=== PATIENT | female | born 1970 | race Caucasian/White ===

== ENCOUNTER 2019-06-17 07:12 | Outpatient (RCR) | payer BC, SELFPAY ==
--- NOTE | 2019-06-17 08:20 | PTOPEVAL ---
PHYSICAL THERAPY EVALUATION AND PLAN OF CARE 06-17-2019 The PT evaluation was completed for the diagnosis of low back pain. Her plan of treatment is for 1-2x/week for 4 weeks. Thank you for referring Kathryn to [facility]. Please review, sign, date and return this plan of care ALL. I agree with and certify that the following plan of care is medically necessary. Referring Physician Date Attending Provider: Batsheva Smith APN *PT Outpatient Evaluation Start: 06/17/19 07:24 Document 06/17/19 07:20 NORA (Rec: 06/17/19 08:19 NORA [id number]) Outpatient Past Medical History Neurological History Hx Neurological Disorders No Significant History Cardiovascular History Hx Cardiac Disorders No Significant History Respiratory History Hx Sleep Apnea Yes: CPAP Gastrointestinal History Hx Diverticulitis Yes: intermittent Genitourinary History Hx Bladder Surgery Yes: sling Musculoskeletal History Hx Back Pain Yes: this admission; with Endocrine History Hx Endocrine Disorders No Significant History Evaluation Information Problem Diagnosis low back pain Onset May 18, 2019 Subjective Information to ER, due to back pain Query Text:As Reported By Patient/ increasing after having sex; Family unable to stand upright, problems walking; had steroids - made her ill, helped little; continue to have pain, but less; pain increased after lean forward into freezer; Diagnostic Tests X-Rays For This Problem Yes: per pt was negative Previous Treatments Previous Treatments For This Problem no PT for back Prior Level of Function Activity Level (Last 3 Months) Occupation office- computer, phone, 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 Home Meds Must Be Re-entered With Each Visit. Comments Additional Prior Level of Function family assist with vaccuuming
--- NOTE | 2019-06-24 07:42 | PCPTNOTE ---
Patient did not show up for scheduled appointment this date.
--- NOTE | 2019-07-07 13:46 | PCPTNOTE ---
PHYSICAL THERAPY DISCHARGE 07-07-2019 Attending Provider: Batsheva Smith NP Patient:Kathryn Sosa Date of :1970 Mrs. Sosa has not returned for any further treatments since the PT evaluation on 06/17/2019, for the diagnosis of low back pain. Therefore she will be discharged from therapy at this time. The goals were not assessed. [facility]. Please review, sign, date and return this discharge summary ALL. I have been updated about the patient's current status and I agree with discharge from the above service at this time. Referring Physician Date
== END 2019-07-07 14:48 | disposition home or self-care (01) ==
LOC: ANHPT 07:12
PROVIDERS: PCP Nurse Practitioner; Visit Provider Nurse Practitioner
DX: M54.5 Low back pain (principal)
CPT/HCPCS: 97110; 97161

== ENCOUNTER 2020-03-02 09:35 | Outpatient (CLI) | payer BC, SELFPAY ==
--- NOTE | ~2020-03-02 | CT_ITS ---
EXAMINATION: CT pelvis wo con DATE: 03/02/2020 09:49 INDICATION: Left groin/pelvic lump or bulge which is tender to touch. TECHNIQUE: Computed tomography (CT) of the pelvis was performed without intravenous contrast. Automat ed exposure control and iterative reconstruction technique were employed. The dose-length product was 295.54 mGy-cm. COMPARISON: None FINDINGS: Postoperative changes with suture line along a loop of small bowel in the anterior pelvis. No abnorma l bowel wall thickening or obstruction. There is sigmoid diverticulosis without adjacent inflammatory change to suggest diverticulitis. Normal appendix. Bladder is normal. The uterus is not identified a nd has likely been surgically resected. The left ovary is normal. The right ovaries unable to be defi nitively identified amongst the bowels. No free intraperitoneal gas or fluid. No pathologically enlar ged pelvic or inguinal lymphadenopathy. Tiny fat-containing left inguinal hernia measuring approximat neel 1 cm in maximal diameter at the distal aspect of the inguinal canal. Mild lumbar levocurvature. M ild degenerative skeletal changes at the bilateral hips, sacroiliac joints and lower lumbar spine. Sm all bone islands at the left ischial and bilateral proximal femurs. IMPRESSION: 1. Tiny fat-containing left inguinal hernia. No pathologically enlarged abdominal lymphadenopathy or other abnormal masses or fluid collections. 2. Sigmoid diverticulosis. Reviewed, dictated and finalized at location B. IMPRESSION: 1. Tiny fat-containing left inguinal hernia. No pathologically enlarged abdomin al lymphadenopathy or other abnormal masses or fluid collections. 2. Sigmoid diverticulosis.
== END 2020-03-02 09:36 ==
PROVIDERS: PCP Internal Medicine; Visit Provider Student in an Organized Health Care Education/Training Program
DX: R19.09 Other intra-abdominal and pelvic swelling, mass and lump (principal); K40.90 Unilateral inguinal hernia, without obstruction or gangrene, not specified as recurrent; K57.90 Diverticulosis of intestine, part unspecified, without perforation or abscess without bleeding
CPT/HCPCS: 72192

== ENCOUNTER 2020-03-11 03:42 | Outpatient (CLI) | payer BC, SELFPAY ==
[2020-03-11 17:45] LABS: SARS-CoV-2 RNA PCR Negative
== END 2020-03-11 03:43 | disposition home or self-care (01) ==
LOC: ANHCOVIDDT 03:43
PROVIDERS: PCP Internal Medicine; Visit Provider Surgery
DX: Z01.812 Encounter for preprocedural laboratory examination (principal); Z20.828 Contact with and (suspected) exposure to other viral communicable diseases
CPT/HCPCS: 87635; C9803; U0003

== ENCOUNTER 2020-03-14 01:42 | Day surgery (SDC) | payer BC, SELFPAY ==
[2020-03-10 14:41] VITALS: BMI 23.8
[2020-03-14] VITALS (9 sets, daily range): BP systolic 112–135; BP diastolic 54–79; PULSE 52–73; RESP 12–20; TEMP 36.4–36.8; O2SAT 97–100
[2020-03-14] MEDS: ACETAMINOPHEN 500 MG TABLET 1000 MG PO (06:51)
[2020-03-14] MEDS: LACTATED RINGERS 1,000 ML 30 ML IV CONT ×2 (07:05→10:33)
[2020-03-14] MEDS: KETOROLAC 15 MG/ML VIAL (*BKC) IV PUSH (07:14)
--- NOTE | 2020-03-14 08:00 | WPDANESEPPF ---
Anes - Initial Pre Proc Eval Procedure: Operation Date: 03/14/20 08:30 Proposed Procedures p Left Laparoscopic Inguinal Hernia Repair With Mesh - Wilber Vela MD Date/Time: 03/14/20 08:00 Surgeon: Wilber Vela MD Pre Op Diagnosis: Reducible Left Inguinal Hernia Patient Data Age: 50 Gender: F Height: 1.68 m Weight: 66.1 kg Last Vital Signs Temp 36.4 C L 03/14/20 06:55 Pulse 73 03/14/20 06:55 Resp 20 03/14/20 06:55 BP 115/66 03/14/20 06:55 Pulse Ox 100 03/14/20 06:55 Allergies Allergy/AdvReac Type Severity Reaction Status Date / Time Iodinated Contrast Media Allergy Unknown SWELLING, Verified 03/14/20 07:16 HIVES Home Medications Medication Instructions Recorded Confirmed Type sertraline 100 mg tablet 100 mg PO DAILY #90 tablet 12/29/19 03/14/20 Rx clonazepam 0.5 mg tablet 0.5 mg PO DAILY 03/08/20 03/14/20 History multivitamin 1 tablet PO DAILY 03/10/20 03/14/20 History Patient hx anesthesia problems: none Family hx anesthesia problems: none PMFSH Past Medical History Medical History Depression Diverticulitis HLD (hyperlipidemia) Insomnia Meckels diverticulum Ovarian cyst Surgical History Surgical History History of hysterectomy History of intestinal surgery resection of Meckels diverticulum S/P laparoscopic procedure pelvic laparoscopy Family History Family History Father Family history of malignant neoplasm of esophagus Hypertension Family history of coronary artery disease Sibling Patient's brother is in good health Mother HLD (hyperlipidemia) History of kidney cancer Son Asthma Social History Social History Years smoked: 20 Smoking status: Current every day smoker Tobacco type: cigarettes Smoking end date: 05/25/19 Alcohol intake: current Drinks per week: 3 Substance use: unknown Spiritual care concerns: No Anes - Eval Final PreProcedure Day of Procedure 03/14/20 08:00 Patient weight: normal Heart: regular rate and rhythm Lungs: clear to auscultation and normal air movement Airway: Mallampati scale class II Neurological: alert and oriented Last oral intake: >/= 8 hours ASA classification: III Emergent: no Anesthetic plan: proceed Anesthesia type and monitoring: general LMA and ETT Informed Consent: The patient's anesthetic plan and its attendant risks and benefits were discussed with the patient/family/POA. Questions were solicited and answers provided to the satisfaction of the patient/family/POA.
--- NOTE | 2020-03-14 08:16 | WPDHPUPDATE1 ---
History and Physical Update Update Date/Time: 03/14/20 08:16 History and Physical has been reviewed, including an updated exam of the patient. There are NO changes in the patient's condition. Risks, benefits, and alternatives have been discussed and questions answered. Patient agrees to proceed with procedure.
[2020-03-14] MEDS: ceFAZolin 2 GM/D5W 50 ML 2 GM/50 ML BAG IVPB (08:51)
[2020-03-14] MEDS: BUPIVACAINE/EPINEPHRINE 0.5% 10 ML VIAL 30 ML INFILTRATE (09:35)
--- NOTE | 2020-03-14 10:42 | PM.PROC ---
Procedure Note - Detailed Date of procedure: 03/15/20 Pre-op diagnosis: Reducible Left Inguinal Hernia Post-op diagnosis: same Procedure performed: Laparoscopic left inguinal hernia repair with mesh Description of procedure: After appropriate marking of the operative site prior to surgery, the patient was taken to the operating room. After induction of adequate general endotracheal anesthesia by [facility] staff,a lebron catheter was placed and the patient was carefully prepped and draped in a sterile fashion. A timeout was performed confirming the procedure and site of surgery on the left. Following this, local anesthetic was infiltrated into the umbilical area and a vertical incision was made just below the umbilicus. I carefully dissected down to the the anterior rectus sheath on the left and then made a 1 cm vertical slit in the fascia just off the midline. The rectus muscle was retracted to left and then just in front of the posterior rectus sheath, a circular dissecting balloon was passed onto the pubic bone. After placing slight pressure on the right groin area, this was insufflated with 30 pumps, while watching with the 0 degree 10 mm laparoscope. It appeared that I was in the proper plane. Following this, the dissecting balloon was deflated and removed and replaced by an Round- shaped conforming balloon. Following this, the 0 degree laparoscope was used to carefully place two 5mm trocars, just to the right of midline. One was placed suprapubic and other one detention between the umbilicus and the pubic bone. Tedious dissection then occurred in the preperitoneal space exposing the Anton's ligament, the round ligament structures, the muscular tissue anteriorly, and the retroperitoneum. The indirect sac was then able to be dissected back and we could visualize the posterior peritoneum. I then dissected up to the level of the umbilicus and it was ready for mesh placement. In the preperitoneal space distal to these attachments of the indirect sac I did transect the round ligament and then dissected back to be able to let the dissected sac lie on the mesh that we inserted later. After carefully confirming all sites and that the mesh would cover the direct space, I carefully rolled the Bard left large 3D mesh and slid this through the 12 mm trocar at the umbilical level down into the preperitoneal space. This unfurled nicely and sat nicely against the left groin structures. It nicely covered all spaces and it went back nicely into the preperitoneal space along the anterior-superior iliac spine. I took a picture of it carefully, which showed that the mesh will cover the preperitoneal groin well, and had come down to the posterior border of the peritoneum. Once this was accomplished, I took the patient out of Trendelenburg position, rotated the patient back even, and then observed using a dissector through the higher 5 mm trocar to keep the mesh pushed down against the anterior and posterior abdominal wall retroperitoneally. The peritoneum was then allowed to fall on to the mesh and it held the mesh nicely in place. I carefully removed each of the 5 mm trocars under direct vision and compressed the CO2 gas out of the preperitoneal space, deflating the conforming balloon and removing it. I was happy with the way the peritoneum laid back on the mesh. I felt this will give the patient a good preperitoneal repair. Following this, I carefully removed the conforming balloon. An O Vicryl figure of eight suture was used to close the anterior rectus sheath on the left side of the umbilical incision and then local anesthetic was infiltrated into each of the incisions. Each site was closed with 4-0 undyed Monocryl and a running subcuticular closure of 4-0 undyed Moncryl was used on the skin of umbilicus. Surgical glue was used for dressing. Following this, the patient was taken to the recovery room in good condition. Estimated blood loss, again, was about less than 30 mls. Ermelinda
[2020-03-14] MEDS: oxyCODONE HCL (*CRX) 5 MG TAB IR PO (11:44)
--- NOTE | 2020-03-14 12:57 | SUR.PHASEII ---
1230 discharge criteria met awaiting transportation home.
== END 2020-03-14 13:20 | disposition home or self-care (01) ==
PROVIDERS: PCP Internal Medicine; Visit Provider Surgery
PROC: (CPT 49650; principal; 2020-03-14 08:30)
DX: K40.90 Unilateral inguinal hernia, without obstruction or gangrene, not specified as recurrent (principal); E78.5 Hyperlipidemia, unspecified; F32.9 Major depressive disorder, single episode, unspecified; F17.210 Nicotine dependence, cigarettes, uncomplicated
CPT/HCPCS: 49650; 36415; 86850; 86900; 86901; A9270; C1781; J0330; J0690; J1100; J1885; J2250; J2405; J2704; J2710; J3010; J7120

== ENCOUNTER 2020-03-15 19:25 | Emergency (ER) | payer BC, SELFPAY ==
[2020-03-15 19:30] VITALS: BP 140/87; PULSE 68; RESP 15; O2SAT 98
[2020-03-15 19:33] VITALS: PULSE 71; RESP 12; O2SAT 99
--- NOTE | 2020-03-15 19:33 | ED.GENADULT ---
HPI - General Adult General Chief complaint: Syncope Stated complaint: near syncope Source: patient History of Present Illness HPI narrative: 50-year-old female presents to emergency department after sustaining a presyncopal episode. Patient states she was having a bowel movement, and felt like she was about to pass out. Never had this in the past before. Patient did have a hernia surgery yesterday. No complications from that surgery at this time. Patient states she feels back to normal now. Patient had a normal glucose per EMS. Related Data Home Medications Medication Instructions Recorded Confirmed clonazepam 0.5 mg tablet 0.5 mg PO DAILY 03/08/20 03/14/20 multivitamin 1 tablet PO DAILY 03/10/20 03/14/20 Allergies Allergy/AdvReac Type Severity Reaction Status Date / Time Iodinated Contrast Media Allergy Unknown SWELLING, Verified 03/14/20 07:16 HIVES Review of Systems Review of Systems: Narrative: CONSTITUTIONAL: Denies fever, chills, or sweats. EYES: Denies visual changes, redness, or discharge. ENT: Denies rhinorrhea, congestion, sore throat, or otalgia. CARDIOVASCULAR: Denies chest pain, palpitations, or edema. RESPIRATORY: Denies cough or dyspnea. GASTROINTESTINAL: Denies abdominal pain, nausea, vomiting, or diarrhea. GENITOURINARY: Denies dysuria or hematuria. SKIN: Denies rash or itching. MUSCULOSKELETAL: Denies back pain, joint pain, or myalgia. NEUROLOGIC: Denies headache, numbness, dizziness, or weakness. PSYCHIATRIC: Denies anxiety or depression. All systems reviewed & are unremarkable except as noted in HPI and below (ROS) [facility] Past Medical History Medical History Depression Diverticulitis HLD (hyperlipidemia) Insomnia Meckels diverticulum Ovarian cyst Surgical History Surgical History History of hysterectomy History of intestinal surgery resection of Meckels diverticulum S/P laparoscopic procedure pelvic laparoscopy Family History Family History Father Family history of malignant neoplasm of esophagus Hypertension Family history of coronary artery disease Sibling Patient's brother is in good health Mother HLD (hyperlipidemia) History of kidney cancer Son Asthma Social History Social History Years smoked: 20 Smoking status: Current every day smoker Tobacco type: cigarettes Smoking end date: 05/25/19 Alcohol intake: current Drinks per week: 3 Substance use: unknown Gender identity (if verbalized by the patient): Female Spiritual care concerns: No Exam Narrative: Exam Narrative: GENERAL: Well-appearing, well-nourished, and in no acute distress. HEAD: Normocephalic, atraumatic. EYES: PERRLA and EOMI. ENT: Nares clear, no rhinorrhea or epistaxis. Mucous membranes moist. NECK: Supple. CHEST: Clear to auscultation. No respiratory distress. HEART: Regular rate and rhythm. No murmur heard. Normal peripheral pulses. ABDOMEN: Soft, nontender, nondistended, normal active bowel sounds. EXTREMITIES: Normal range of motion. No edema. SKIN: Warm, dry, no rash. NEURO: No focal deficits. Alert and oriented x3. PSYCH: Normal mood and affect. Course Reevaluation(s) Reevaluation #1: 2230 -reevaluated patient, no new complaints. Patient likely had a vasovagal episode. Counseled patient to follow-up with her medical provider within one week, or if she has another episode where she feels like she is going to pass out. Vital Signs Vital signs: Vital Signs Pulse Rate 68 03/15/20 19:30 Respiratory Rate 15 03/15/20 19:30 Blood Pressure 140/87 03/15/20 19:30 Pulse Oximetry 98 03/15/20 19:30 Pulse Rate 70 03/15/20 19:46 Respiratory Rate 25 H 03/15/20 19:46 Blood Pressure 135/78 03/15/20 19:46 Pulse Oximetry 98
[2020-03-15 19:34] VITALS: BP 140/87; PULSE 67; RESP 21; O2SAT 99
[2020-03-15 19:46] VITALS: BP 135/78; PULSE 70; RESP 25; O2SAT 98
[2020-03-15] MEDS: SODIUM CHLORIDE 0.9% IV 1,000 ML 999 ML IV CONT (20:00)
[2020-03-15 20:14] LABS: Basophils Percent Auto 0.3 % (0.2-1.2); Eosinophils Absolute Auto 0.1 K/mm3 (0-0.3); Eosinophils Percent Auto 1.1 % (0-4.4); Hematocrit 36.2 % (37.0-47.0); Immature Granulocyte Absolute 0.03 K/mm3 (0.00-0.031); Immature Granulocyte Percent A 0.3 % (0-0.5); Lymphocytes Percent Auto 27.2 % (18.3-44.2); Mean Corpuscular HGB Conc 33.1 g/dl (32-36); Mean Corpuscular Hemoglobin 31.4 pg (26-34); Mean Corpuscular Volume 94.8 fl (80-100); Mean Platelet Volume 9.9 fl (7.4-10.4); Monocytes Absolute Auto 0.6 K/mm3 (0.1-0.6); Neutrophils Absolute Auto 5.7 K/mm3 (1.3-6.7); Neutrophils Percent Auto 64.1 % (45.5-73.1); Platelet Count Result 260 k/mm3 (150-375); Red Blood Count 3.82 M/mm3 (4.2-5.4); Red Cell Distribution Width 13.2 % (11.5-14.5); White Blood Count 8.8 K/mm3 (4.5-10.0)
[2020-03-15 20:25] LABS: Alanine Aminotransferase 17 U/L (4-35); Albumin Level 4.3 g/dL (3.5-5.1); Alkaline Phosphatase 50 U/L (38-126); Anion Gap 5 mmol/L (8-16); Aspartate Amino Transferase 25 U/L (14-36); Bilirubin,Total 0.4 mg/dL (0.2-1.3); Blood Urea Nitrogen 11 mg/dL (7-17); Calcium 8.7 mg/dL (8.4-10.2); Carbon Dioxide 31 mmol/L (22-30); Chloride 100 mmol/L (98-107); Estimated CRCL calculation 91 ml/min; Estimated Glomerular Filt Rate > 60; Glucose 105 mg/dL (65-105); Potassium 3.9 mmol/L (3.4-5.0); Sodium 136 mmol/L (137-145)
== END 2020-03-15 22:51 | disposition home or self-care (01) ==
PROVIDERS: Emergency Provider Emergency Medicine; PCP Internal Medicine
DX: R55 Syncope and collapse (principal); F32.9 Major depressive disorder, single episode, unspecified; E78.5 Hyperlipidemia, unspecified; Z90.49 Acquired absence of other specified parts of digestive tract; F17.210 Nicotine dependence, cigarettes, uncomplicated
CPT/HCPCS: 36415; 80053; 85025; 96360; 99283; J7030

== ENCOUNTER 2020-06-03 11:35 | Outpatient (NON) | payer BC, SELFPAY ==
[2020-06-03 17:24] LABS: Influenza Control Positive
[2020-06-03 22:42] LABS: SARS-CoV-2 RNA PCR Negative
== END 2020-06-03 11:36 ==
LOC: ANHCOVIDDT 11:36
PROVIDERS: PCP Internal Medicine; Visit Provider Clinical Nurse Specialist
DX: Z20.822 Contact with and (suspected) exposure to COVID-19 (principal); R50.9 Fever, unspecified
CPT/HCPCS: 87804; C9803; U0003; U0005

== ENCOUNTER → 2020-08-31 07:07 | Outpatient (CLI) | payer BC, SELFPAY ==
[2020-08-31 21:08] LABS: SARS-CoV-2 RNA PCR Positive
== END ==
PROVIDERS: PCP Internal Medicine; Visit Provider Clinical Nurse Specialist
DX: U07.1 COVID-19 (principal)
CPT/HCPCS: C9803; U0003; U0005

== ENCOUNTER 2021-05-15 08:36 | Emergency (ER) | payer BC, SELFPAY ==
--- NOTE | ~2021-05-15 | XR_ITS ---
EXAMINATION: XR lumbar spine min 4V EXAM DATE: 05/15/2021 09:40 INDICATION: Low back pain. Fall. TECHNIQUE: Lumber spine frontal, lateral, bilateral oblique projections. Coned down frontal and lat eral L5-S1 lumbar projections for interpretation. There is no prior study for comparison. FINDINGS: There is mild lumbar levoscoliosis. There is no spondylolysis. The vertebral bodies are ali gned in the AP dimension. There are no acute fractures identified. Vertebral body and disc heights ar e well-maintained. There is mild lumbar facet arthropathy. IMPRESSION: 1. No acute lumbar findings. 2. Mild levoscoliosis. 3. Mild facet arthropathy. Reviewed, dictated and finalized at location B. RVISOR KNITTING
--- NOTE | ~2021-05-15 | CT_ITS ---
EXAMINATION: CT brain wo con, CT cervical spine wo con EXAM DATE: 05/15/2021 09:45 INDICATION: Head trauma. Nausea and dizziness. TECHNIQUE: Spiral CT of the head was performed without contrast. Axial, coronal and sagittal images were reviewed. Spiral CT of the cervical spine was performed without contrast. Axial images were rev iewed. Coronal and sagittal reformatted images were also reviewed. The dose-length product (DLP) fo r this examination was 605.33 (accession [id number]), 210.85 (accession [id number]) mGy-cm. The exposure was tailored according to patient size, and iterative reconstruction (ASIR) was used as additional dose reduction technique. There is no prior study for comparison. FINDINGS: HEAD CT: There is no acute intraparenchymal hemorrhage. No evidence of intraparenchymal brain mass l esion. No evidence of acute infarction. There is no mass effect or midline shift. There is no obstru ctive hydrocephalus suspected. There are no extra-axial collections. There are no acute calvarial f ractures. The orbits are unremarkable. Soft tissue is unremarkable. The visualized sinuses and mas toid air cells are well aerated. CERVICAL CT: There is no evidence of acute cervical fracture. The odontoid process is intact. Pre- dens space is normal. Prevertebral soft tissue is normal. There are no soft tissue abnormalities id entified. There is no disc space widening or traumatic vertebral body subluxation suspected. Modera te lower cervical disc disease and mild cervical arthropathy. A detailed level by level evaluation o f spondylosis can be added as addendum if requested. IMPRESSION: 1. No acute intracranial findings or cervical fracture. Reviewed, dictated and finalized at location B. ASSET MANAGER IMPRESSION: 1. No acute intracranial findings or cervical fracture.
--- NOTE | ~2021-05-15 | XR_ITS ---
EXAMINATION: XR sacrum coccyx min 2V EXAM DATE: 05/15/2021 09:40 INDICATION: Fell down steps last night, low back pain. TECHNIQUE: Sacral frontal, inlet, lateral projections for interpretation. Comparison is made to prior examination from 05/15/2021. FINDINGS: Sacrum, sacroiliac joints, sacral arcuate lines are intact. There are no acute fractures o r dislocations identified. There is no subcutaneous gas. The soft tissue is unremarkable. Right m idabdominal anastomosis material. Mild lumbar levoscoliosis. IMPRESSION: No acute osseous findings. Reviewed, dictated and finalized at location B. [employer] IMPRESSION: No acute osseous findings.
[2021-05-15 08:39] VITALS: BP 188/114; PULSE 85; RESP 18; TEMP 36.8; O2SAT 100
--- NOTE | 2021-05-15 09:50 | ED.GENADULT ---
HPI - General Adult General Chief complaint: Fall Stated complaint: fall Time Seen by Provider: 05/15/21 09:16 Source: patient Mode of arrival: ambulatory Limitations: no limitations History of Present Illness HPI narrative: Patient is a 51-year-old female with chief complaint of pain to the posterior aspect of her head after falling while trying to step over a baby gate at the top of her stairs last night. Patient reports that she struck the posterior aspect of her head in the right side on a can of paint. She denies loss of consciousness reports after the event she feel dizzy and nauseous. Patient reports that she went to be after that. She reports was negative this morning with continuation of prior feelings of nausea and dizziness. She denies changes in her vision or hearing. She denies speech difficulty. She reports that she feels as if she is spinning when she attempts to ambulate. She had her brother bring her to the emergency department. Patient also reports pain to her low back and coccyx area. Patient reports bruises to the right arm but and lower extremities. However she denies bony tenderness to these areas. Related Data Home Medications Medication Instructions Recorded Confirmed clonazepam 0.5 mg tablet 0.5 mg PO DAILY 03/08/20 04/25/20 multivitamin 1 tablet PO DAILY 03/10/20 04/25/20 Allergies Allergy/AdvReac Type Severity Reaction Status Date / Time Iodinated Contrast Media Allergy Unknown SWELLING, Verified 06/03/20 09:58 HIVES Review of Systems Review of Systems: CONSTITUTIONAL: Denies fever, chills, or sweats. EYES: Denies visual changes, redness, or discharge. ENT: Denies rhinorrhea, congestion, sore throat, or otalgia. CARDIOVASCULAR: Denies chest pain, palpitations, or edema. RESPIRATORY: Denies cough or dyspnea. GASTROINTESTINAL: Reports nausea denies abdominal pain, vomiting, or diarrhea. GENITOURINARY: Denies dysuria or hematuria. SKIN: Reports ecchymosis denies rash or itching. MUSCULOSKELETAL: Denies back pain, joint pain, or myalgia. NEUROLOGIC: Reports dizziness denies headache, numbness or weakness. PSYCHIATRIC: Denies anxiety or depression. [facility] Past Medical History Medical History (Updated 05/15/21 @ 10:13 by Pearl Harkins PA-C) Depression Diverticulitis HLD (hyperlipidemia) Insomnia Meckels diverticulum Ovarian cyst Surgical History Surgical History (Updated 04/25/20 @ 14:33 by Marla Stephenson [facility]) H/O hernia repair 03/14/2020 History of hysterectomy History of intestinal surgery resection of Meckels diverticulum Left inguinal hernia S/P laparoscopic procedure pelvic laparoscopy Family History Family History Father Family history of malignant neoplasm of esophagus Hypertension Family history of coronary artery disease Sibling Patient's brother is in good health Mother HLD (hyperlipidemia) History of kidney cancer Son Asthma Social History Social History (Updated 04/25/20 @ 14:33 by Marla Stephenson [facility]) Smoking packs per day: 0.5 Smoking cigarettes per day: 10.0 Years smoked: 20 Smoking pack-years: 10.00 Smoking status: Current some day smoker Tobacco type: cigarettes Smoking end date: 05/25/19 Alcohol intake: current Drinks per week: 3 Alcohol use details: Pt drinks socially. Substance use: unknown Gender identity (if verbalized by the patient): Female Spiritual care concerns: No Exam Narrative: GENERAL: Well-appearing, well-nourished, and in no acute distress. HEAD: Normocephalic, atraumatic. EYES: PERRLA and EOMI. ENT: Nares clear, no rhinorrhea or epistaxis. Mucous membranes moist. Oropharynx without tonsillar hypertrophy exudate or other lesions. Bilateral TMs pearly flowers nonbulging. No hemotympanum. NECK: Supple. No adenopathy or masses. Range of motion intact. CHEST: Nontender to palpation. clear to auscultation. No respiratory dis
[2021-05-15 09:58] LABS: Add Urine Microscopic? NO; Appearance Urine Clear (Clear); Bilirubin Urine Negative (Negative); Blood Urine Negative (Negative); Color Urine Yellow (Yellow); Glucose Urine UA Negative (Negative); Ketones Urine Negative (Negative); Leukocyte Esterase Ur Negative LEU/UL (Negative); Nitrate Urine Negative (Negative); Protein Urine Negative (Negative); Urobilinogen Urine Negative mg/dL (<2.0)
[2021-05-15 09:59] LABS: Specific Grav Ur 1.004 (1.001-1.035)
[2021-05-15 10:38] VITALS: BP 153/90; PULSE 78; RESP 16; O2SAT 98
[2021-05-15] MEDS: ONDANSETRON HCL ODT 4 MG TABLET PO (10:38)
== END 2021-05-15 11:00 | disposition home or self-care (01) ==
PROVIDERS: Physician Assistant; Emergency Provider Emergency Medicine; PCP Internal Medicine
DX: S06.0X0A Concussion without loss of consciousness, initial encounter (principal); S39.92XA Unspecified injury of lower back, initial encounter; F32.9 Major depressive disorder, single episode, unspecified; E78.5 Hyperlipidemia, unspecified; F17.210 Nicotine dependence, cigarettes, uncomplicated; W18.09XA Striking against other object with subsequent fall, initial encounter
CPT/HCPCS: 70450; 72110; 72125; 72220; 81003; 99284; A9270

== ENCOUNTER 2021-07-30 10:20 | Emergency (ER) | payer BC, SELFPAY ==
--- NOTE | ~2021-07-30 | XR_ITS ---
EXAMINATION: XR chest 2V DATE: 07/30/2021 11:24 INDICATION: Shortness of breath. TECHNIQUE: Frontal and lateral views of the chest were obtained. COMPARISON: None. FINDINGS: There is mild scarring at the lung apices. No pleural effusion or pneumothorax. The heart s ize is normal. Pectus excavatum is noted. IMPRESSION: 1. Mild scarring at the lung apices. Reviewed, dictated and finalized at location A.
[2021-07-30 10:28] VITALS: BP 179/101; PULSE 109; RESP 14; TEMP 36.6; O2SAT 99
[2021-07-30 10:40] VITALS: BP 188/108; PULSE 107; RESP 16; O2SAT 100
--- NOTE | 2021-07-30 10:49 | ECG_ITS ---
Measurements Intervals [place] Rate: 90 P: 84 NC: 179 QRS: 44 QRSD: 85 T: 65 QT: 354 QTc: 433 Interpretive Statements SINUS RHYTHM LEFT ATRIAL ENLARGEMENT [-0.15mV P-WAVE IN V1/V2] NO PREVIOUS ECG AVAILABLE FOR COMPARISON Electronically Signed On 07-30-2021 16:51:27 CDT by Paulette Alford M.D.
[2021-07-30 10:57] LABS: Basophils Percent Auto 0.5 % (0.2-1.2); Eosinophils Absolute Auto 0.1 K/mm3 (0-0.3); Eosinophils Percent Auto 0.7 % (0-4.4); Hematocrit 42.2 % (37.0-47.0); Hemoglobin 14.2 g/dL (12.0-15.0); Immature Granulocyte Absolute 0.02 K/mm3 (0.00-0.031); Immature Granulocyte Percent A 0.3 % (0-0.5); Lymphocytes Absolute Auto 1.99 K/mm3 (0.9-3.2); Lymphocytes Percent Auto 26.9 % (18.3-44.2); Mean Corpuscular HGB Conc 33.6 g/dl (32-36); Mean Corpuscular Hemoglobin 32.5 pg (26-34); Mean Corpuscular Volume 96.6 fl (80-100); Mean Platelet Volume 9.7 fl (7.4-10.4); Monocytes Absolute Auto 0.7 K/mm3 (0.1-0.6); Monocytes Percent Auto 9.9 % (2.6-8.5); Neutrophils Absolute Auto 4.6 K/mm3 (1.3-6.7); Neutrophils Percent Auto 61.7 % (45.5-73.1); Platelet Count Result 294 k/mm3 (150-375); Red Blood Count 4.37 M/mm3 (4.2-5.4); Red Cell Distribution Width 12.9 % (11.5-14.5); White Blood Count 7.4 K/mm3 (4.5-10.0)
--- NOTE | 2021-07-30 10:58 | ED.ARRPALP ---
HPI - Arrhythmia/Palpitations General Chief Complaint: Arrhythmia/Palpitations Stated Complaint: Palpitations Time Seen by Provider: 07/30/21 10:58 Source: patient Mode of arrival: ambulatory Limitations: no limitations History of Present Illness HPI narrative: Patient is a 51-year-old female with a history of Covid infection in May 2020, presenting to the emergency department for evaluation of palpitations, shortness of breath with exertion, pain with deep inspiration. Patient states she has felt unwell since becoming symptomatic with Covid 2 months ago. Patient reports at times she has a racing heartbeat, but denies any significant chest pain. She denies nausea, vomiting, jaw pain, neck pain, shoulder pain. She does have pain if she takes a deep breath in her posterior left lower chest. She reports cough without hemoptysis. She denies fever or chills. Patient states that she did not require hospitalization with Covid. She states she also had Covid in August 2019 but symptoms were much different, symptoms at that infection were malaise, fatigue, fever. She states that this Covid infection her symptoms are mainly cough and congestion. Patient states that she feels as if she has never cleared this infection. She states that she has not had any leg swelling or calf pain, but her primary care provider referred her to the emergency department to be evaluated for possible PE. Related Data Home Medications Medication Instructions Recorded Confirmed clonazepam 0.5 mg tablet 0.5 mg PO DAILY 03/08/20 04/25/20 multivitamin 1 tablet PO DAILY 03/10/20 04/25/20 Allergies Allergy/AdvReac Type Severity Reaction Status Date / Time Iodinated Contrast Media Allergy Unknown SWELLING, Verified 07/30/21 10:49 ADEN Review of Systems Review of Systems: CONSTITUTIONAL: Denies fever, chills, or sweats. EYES: Denies visual changes, redness, or discharge. ENT: Denies rhinorrhea, congestion, sore throat, or otalgia. CARDIOVASCULAR: Denies chest pain, reports palpitation, denies lower extremity edema RESPIRATORY: Reports cough and shortness of breath GASTROINTESTINAL: Denies abdominal pain, nausea, vomiting, or diarrhea. GENITOURINARY: Denies dysuria or hematuria. SKIN: Denies rash or itching. MUSCULOSKELETAL: Denies back pain, joint pain, or myalgia. NEUROLOGIC: Denies headache, numbness, or weakness. [facility] Past Medical History Medical History Depression Diverticulitis HLD (hyperlipidemia) Insomnia Meckels diverticulum Ovarian cyst Surgical History Surgical History H/O hernia repair 03/14/2020 History of hysterectomy History of intestinal surgery resection of Meckels diverticulum Left inguinal hernia S/P laparoscopic procedure pelvic laparoscopy Family History Family History Father Family history of malignant neoplasm of esophagus Hypertension Family history of coronary artery disease Sibling Patient's brother is in good health Mother HLD (hyperlipidemia) History of kidney cancer Son Asthma Social History Social History Smoking packs per day: 0.5 Smoking cigarettes per day: 10.0 Years smoked: 20 Smoking pack-years: 10.00 Smoking status: Current some day smoker Tobacco type: cigarettes Smoking end date: 05/25/19 Alcohol intake: current Drinks per week: 3 Alcohol use details: Pt drinks socially. Substance use: unknown Gender identity (if verbalized by the patient): Female Spiritual care concerns: No Exam Narrative: GENERAL: Awake, alert, conversant HEAD: Normocephalic, atraumatic. EYES: PERRLA and EOMI. ENT: Nares clear, no rhinorrhea or epistaxis. Mucous membranes moist. NECK: Supple. No cervical midline tenderness. CHEST: No respiratory distress, br
[2021-07-30 11:08] LABS: Alanine Aminotransferase 25 U/L (4-35); Albumin Level 5.2 g/dL (3.5-5.1); Alkaline Phosphatase 71 U/L (38-126); Anion Gap 11 mmol/L (8-16); Aspartate Amino Transferase 43 U/L (14-36); Bilirubin,Total 0.8 mg/dL (0.2-1.3); Blood Urea Nitrogen 16 mg/dL (7-17); Calcium 9.9 mg/dL (8.4-10.2); Carbon Dioxide 26 mmol/L (22-30); Chloride 99 mmol/L (98-107); Estimated Glomerular Filt Rate > 60; Glucose 142 mg/dL (65-110); INR 0.9; Lipase 131 U/L (23-300); Potassium 4.3 mmol/L (3.4-5.0); Prothrombin Time 11.8 Seconds (11.1-14.7); Sodium 136 mmol/L (137-145)
[2021-07-30 11:09] LABS: Partial Thromboplastin Time 27.7 SECONDS (22.3-36.8)
[2021-07-30 11:19] LABS: Troponin I < 0.012 ng/mL (0.000-0.034)
[2021-07-30 11:55] LABS: NT Pro B Type Natriuretic Pept 86 pg/mL (5-100)
== END 2021-07-30 13:25 | disposition home or self-care (01) ==
PROVIDERS: Emergency Provider Emergency Medicine; PCP Internal Medicine
DX: R00.2 Palpitations (principal); E78.5 Hyperlipidemia, unspecified; Z86.16 Personal history of COVID-19; F32.A Depression, unspecified; F17.210 Nicotine dependence, cigarettes, uncomplicated; R94.31 Abnormal electrocardiogram [ECG] [EKG]
CPT/HCPCS: 36415; 71046; 80053; 83690; 83880; 84484; 85025; 85380; 85610; 85730; 93005; 99284

== ENCOUNTER 2022-08-15 09:42 | Emergency (ER) | payer BC, SELFPAY ==
[2022-08-15 09:45] VITALS: BP 190/107; PULSE 88; RESP 20; TEMP 36.4; O2SAT 100
--- NOTE | 2022-08-15 10:29 | ED.EXTPRO ---
HPI - Extremity Problem General Chief complaint: Extremity Problem,Nontraumatic Stated complaint: fingers changing colors Time Seen by Provider: 08/15/22 10:15 History of Present Illness HPI Narrative: This is a 52-year-old female with PMH of anxiety and depression who presents to the ED with chief complaint of hand discoloration beginning this morning. Patient recently diagnosed with COVID and is started taking Paxlovid. She states she started noticing this discoloration after she started the Paxlovid. This started when she was lying down on the couch. Upon arrival to the ED she says her symptoms have completely resolved. States she just felt anxious so she wanted to come in. Denies numbness, weakness. Related Data Home Medications Medication Instructions Recorded Confirmed clonazepam 0.5 mg tablet (Klonopin) 0.5 mg PO DAILY 03/08/20 10/19/21 multivitamin 1 tablet PO DAILY 03/10/20 10/19/21 Allergies Allergy/AdvReac Type Severity Reaction Status Date / Time Iodinated Contrast Media Allergy Unknown SWELLING, Verified 10/19/21 07:40 HIVES Review of Systems Review of Systems: CONSTITUTIONAL: Denies fever, chills, or sweats. SKIN: Endorses discoloration (resolved). Denies rash or itching. MUSCULOSKELETAL: Denies back pain, joint pain, or myalgia. NEUROLOGIC: Denies headache, numbness, dizziness, or weakness. PSYCHIATRIC: Denies anxiety or depression. [facility] Past Medical History Medical History (Updated 08/15/22 @ 10:36 by Tom Mak PA-C) Depression Diverticulitis HLD (hyperlipidemia) Insomnia Meckels diverticulum Ovarian cyst Surgical History Surgical History H/O hernia repair 03/14/2020 History of hysterectomy History of intestinal surgery resection of Meckels diverticulum Left inguinal hernia S/P laparoscopic procedure pelvic laparoscopy Family History Family History Father Family history of malignant neoplasm of esophagus Hypertension Family history of coronary artery disease Sibling Patient's brother is in good health Mother HLD (hyperlipidemia) History of kidney cancer Son Asthma Social History Social History Smoking packs per day: 0.5 Smoking cigarettes per day: 10.0 Years smoked: 20 Smoking pack-years: 10.00 Smoking status: Current every day smoker Tobacco type: cigarettes Smoking end date: 05/25/19 Alcohol intake: current Drinks per week: 3 Alcohol use details: Pt drinks socially. Substance use: unknown Gender identity (if verbalized by the patient): Female Spiritual care concerns: No Exam Narrative: GENERAL: Well-appearing, well-nourished, and in no acute distress. NECK: Supple. No adenopathy or masses. CHEST: No respiratory distress. Clear to auscultation. No wheezes rales or rhonchi HEART: Regular rate and rhythm. No murmur heard. Normal peripheral pulses. Good radial pulses. EXTREMITIES: Normal range of motion. No edema. SKIN: Warm, dry, no rash. Normal color. NEURO: Alert and oriented x3. No focal deficits. Good strength and sensation of the hands PSYCH: Normal mood and affect. Course Vital Signs Vital signs: Vital Signs Temperature 97.6 F 08/15/22 09:45 Pulse Rate 88 08/15/22 09:45 Respiratory Rate 20 08/15/22 09:45 Blood Pressure 190/107 H 08/15/22 09:45 Pulse Oximetry 100 08/15/22 09:45 Oxygen Delivery Room Air 08/15/22 09:45 Temperature 97.6 F 08/15/22 09:45 Pulse Rate 88 08/15/22 09:45 Respiratory Rate 20 08/15/22 09:45 Blood Pressure 190/107 H 08/15/22 09:45 Pulse Oximetry 100 08/15/22 09:45 Oxygen Delivery Room Air 08/15/22 09:45 MDM - Extremity (Nontraumatic) MDM Narrative Medical decision making narrative: This is a 52-year-old female presents to the ED with chief complaint of hand discol
== END 2022-08-15 10:55 | disposition home or self-care (01) ==
PROVIDERS: Emergency Provider Physician Assistant; PCP Internal Medicine
DX: U07.1 COVID-19 (principal); F41.9 Anxiety disorder, unspecified; F32.A Depression, unspecified; E78.5 Hyperlipidemia, unspecified; F17.210 Nicotine dependence, cigarettes, uncomplicated
CPT/HCPCS: 99281

== ENCOUNTER 2023-05-29 08:10 | Emergency (ER) | payer BC, SELFPAY ==
--- NOTE | ~2023-05-29 | CT_ITS ---
EXAMINATION: CT abdomen pelvis wo con DATE: 05/29/2023 09:36 INDICATION: Pelvic pain. TECHNIQUE: Computed tomography (CT) of the abdomen and pelvis was performed without intravenous contr ast. Automated exposure control and iterative reconstruction technique were employed. The dose-length product was 333.06 mGy-cm. COMPARISON: CT pelvis 03/02/2020 FINDINGS: The visualized portions of the lung bases demonstrate mild atelectasis. No pleural effusion . Pectus excavatum is noted. The heart size is normal. No pericardial effusion. The liver, gallbladde r, spleen, pancreas, adrenal glands, and kidneys are normal. There is no urolithiasis. There are scat tered diverticula in the colon. There is fat stranding around a diverticulum of the sigmoid colon, co nsistent with diverticulitis. The appendix is normal. There is atherosclerosis is noted. There are no pathologically enlarged lymph nodes. There is a small umbilical hernia containing fat. There is no f ree intraperitoneal fluid. There is mild lumbar spondylosis. Lumbar levoscoliosis is noted. IMPRESSION: 1. Sigmoid diverticulitis. No perforation or abscess. Reviewed, dictated and finalized at location A. ICAL THERAPY ASSISTANT INSTRUCTOR
[2023-05-29 08:27] VITALS: BP 156/105; PULSE 84; RESP 16; TEMP 36.6; O2SAT 100
[2023-05-29 08:55] LABS: Basophils Percent Auto 0.4 % (0.2-1.2); Eosinophils Absolute Auto 0.1 K/mm3 (0-0.3); Hematocrit 39.7 % (37.0-47.0); Hemoglobin 12.4 g/dL (12.0-15.0); Immature Granulocyte Absolute 0.02 K/mm3 (0.00-0.031); Immature Granulocyte Percent A 0.3 % (0-0.5); Lymphocytes Absolute Auto 1.61 K/mm3 (0.9-3.2); Mean Corpuscular HGB Conc 31.2 g/dl (32-36); Mean Corpuscular Hemoglobin 30.7 pg (26-34); Mean Corpuscular Volume 98.3 fl (80-100); Mean Platelet Volume 10.2 fl (7.4-10.4); Monocytes Absolute Auto 0.8 K/mm3 (0.1-0.6); Monocytes Percent Auto 11.7 % (2.6-8.5); Neutrophils Absolute Auto 4.5 K/mm3 (1.3-6.7); Neutrophils Percent Auto 63.6 % (45.5-73.1); Platelet Count Result 268 k/mm3 (150-375); Red Blood Count 4.04 M/mm3 (4.2-5.4); Red Cell Distribution Width 13.3 % (11.5-14.5)
[2023-05-29 09:06] LABS: Alanine Aminotransferase 20 U/L (6-35); Albumin Level 4.4 g/dL (3.5-5.1); Alkaline Phosphatase 50 U/L (38-126); Anion Gap 9 mmol/L (8-16); Aspartate Amino Transferase 24 U/L (14-36); Bilirubin,Total 0.4 mg/dL (0.2-1.3); Blood Urea Nitrogen 12 mg/dL (7-17); Calcium 9.6 mg/dL (8.4-10.2); Carbon Dioxide 28 mmol/L (22-30); Chloride 102 mmol/L (98-107); Estimated CRCL calculation 88 ml/min; Estimated Glomerular Filt Rate > 60; Glucose 114 mg/dL (65-110); Lipase 98 U/L (23-300); Potassium 4.9 mmol/L (3.4-5.0); Sodium 139 mmol/L (137-145)
[2023-05-29 09:11] LABS: Add Urine Microscopic? NO; Leukocyte Esterase Ur Negative LEU/UL (Negative)
[2023-05-29 09:12] LABS: Appearance Urine Clear (Clear); Bilirubin Urine Negative (Negative); Blood Urine Negative (Negative); Color Urine Yellow (Yellow); Glucose Urine UA Negative (Negative); Ketones Urine Negative (Negative); Nitrate Urine Negative (Negative); Protein Urine Negative (Negative); Urobilinogen Urine 0.2 mg/dL (<2.0)
--- NOTE | 2023-05-29 10:36 | ED.ABDPAIN ---
HPI - Abdominal Pain General Chief Complaint: Abdominal Pain Stated Complaint: pubic/rectal pain and pressure Time Seen by Provider: 05/29/23 08:28 Source: patient Mode of arrival: ambulatory Limitations: no limitations History of Present Illness HPI narrative: 53-year-old with a history of diverticulitis here with the complaints of pelvic pain for past few days. Patient states that she has been having sharp shooting pain in the lower abdomen for the past 2 days she said the pain is intense. She denies any nausea, vomiting. No rectal bleeding. MD elicited complaint: abdominal pain Pertinent past history: diverticulitis Onset (ago): day(s) (2) Pain Consistency: intermittent Location: suprapubic Severity: moderate Quality: stabbing Related Data Home Medications Medication Instructions Recorded Confirmed clonazepam 0.5 mg tablet (Klonopin) 0.5 mg PO DAILY 03/08/20 10/23/22 multivitamin 1 tablet PO DAILY 03/10/20 10/23/22 Allergies Allergy/AdvReac Type Severity Reaction Status Date / Time Iodinated Contrast Media Allergy Unknown SWELLING, Verified 05/29/23 10:21 HIVES Contrast Media Allergy Unknown Uncoded 05/29/23 10:21 Review of Systems Review of Systems: All systems reviewed & are unremarkable except as noted in HPI and below Constitutional: Constitutional: Reports no additional constitutional complaints Eyes: Eyes: Reports no additional eye complaints ENT: Reports system reviewed and no additional complaints, except as documented Cardiovascular: Cardiovascular: Reports no additional cardiovascular complaints Respiratory: Respiratory: Reports no additional respiratory complaints Gastrointestinal: Gastrointestinal: Reports as per HPI Genitourinary: Genitourinary: Reports no additional female genitourinary complaints Musculoskeletal: Musculoskeletal: Reports no additional musculoskeletal complaints Integumentary/Breasts: Skin/Breast: Reports system reviewed and no additional complaints, except as docu PMFSH Past Medical History Medical History Depression Diverticulitis HLD (hyperlipidemia) Insomnia Meckels diverticulum Ovarian cyst Surgical History Surgical History H/O hernia repair 03/14/2020 History of hysterectomy History of intestinal surgery resection of Meckels diverticulum Left inguinal hernia S/P laparoscopic procedure pelvic laparoscopy Family History Family History Father Family history of malignant neoplasm of esophagus Hypertension Family history of coronary artery disease Sibling Patient's brother is in good health Mother HLD (hyperlipidemia) History of kidney cancer Son Asthma Social History Social History Smoking packs per day: 0.5 Smoking cigarettes per day: 10.0 Years smoked: 20 Smoking pack-years: 10.00 Smoking status: Current every day smoker Tobacco type: cigarettes Smoking end date: 05/25/19 Alcohol intake: current Drinks per week: 3 Alcohol use details: Pt drinks socially. Substance use: unknown Gender identity (if verbalized by the patient): Female Spiritual care concerns: No Exam Narrative: GENERAL: Well-appearing, well-nourished, and in no acute distress. HEAD: Normocephalic, atraumatic. EYES: PERRLA and EOMI. ENT: Nares clear, no rhinorrhea or epistaxis. Mucous membranes moist. NECK: Supple. CHEST: Clear to auscultation. No respiratory distress. HEART: Regular rate and rhythm. No murmur heard. Normal peripheral pulses. ABDOMEN: Soft, nontender, nondistended, normal active bowel sounds. EXTREMITIES: Normal range of motion. No edema. SKIN: Warm, dry, no rash. NEURO: No focal deficits. Alert and oriented x3. PSYCH: Normal mood and affect. Course Course Emergency Course: Patient comfo
== END 2023-05-29 11:07 | disposition home or self-care (01) ==
PROVIDERS: Emergency Provider Family Medicine
DX: K57.32 Diverticulitis of large intestine without perforation or abscess without bleeding (principal); E78.5 Hyperlipidemia, unspecified; F17.210 Nicotine dependence, cigarettes, uncomplicated
CPT/HCPCS: 36415; 74176; 80053; 81003; 83690; 85025; 99284

== ENCOUNTER 2023-11-01 15:04 | Outpatient (CLI) | payer BC, SELFPAY ==
--- NOTE | 2023-11-01 15:11 | ECHO_ITS ---
Patient Info Name: Kathryn Mathis Age: 53 years : 1970 Gender: Female Ht: 66 in Wt: 148 lbs BSA: 1.78 m2 HR: 81 bpm BP: 155 / 81 mmHg Technical Quality: Good Exam Date: 11/01/2023 3:30 PM Exam Location: Echo Lab Patient Status: Outpatient Admit Date: 11/01/2023 Staff Ordering Physician: Jodie Guzmán Environmental Professional: Bharathi Mcintosh RDCS Attending Provider: Jodie Guzmán Referring Physician: Arielle IBARRA; Exam Type: CA echo doppler color flow Study Info Indications - Dizziness and giddiness Complete two-dimensional, color flow and Doppler transthoracic echocardiogram is performed. Summary 1. Complete two-dimensional, color flow and Doppler transthoracic echocardiogram is performed. 2. Left ventricular chamber dimension is normal. 3. Left ventricular systolic function is normal, estimated at 65-70%. 4. The left ventricular diastolic function is grade I diastolic dysfunction. 5. E/e' 8 is minimally elevated. 6. No pulmonary hypertension, estimated pulmonary arterial systolic pressure is 34 mmHg. Left Ventricle E/e' 8 is minimally elevated. Left ventricular chamber dimension is normal. Left ventricular systolic function is normal, estimated at 65-70%. The left ventricular diastolic function is grade I diastolic dysfunction. Right Ventricle Right ventricular systolic function is normal and with normal TAPSE 2.5 cm. Right ventricular chamber dimension is normal. Left Atria Left atrial chamber dimension is normal. Right Atria Right atrial chamber dimension is normal. Aortic Valve The aortic valve is trileaflet. There is no aortic valve stenosis. There is no aortic valve regurgitation. Pulmonic Valve There is no pulmonic regurgitation. Mitral Valve There is no mitral valve stenosis. There is no mitral valve regurgitation. Tricuspid Valve There is no tricuspid valve regurgitation. No pulmonary hypertension, estimated pulmonary arterial systolic pressure is 34 mmHg. Pericardium/Pleural There is no pericardial effusion. Inferior Vena Cava Normal inferior vena cava with >50% collapse upon inspiration consistent with normal right atrial pressure, 5 mmHg. Aorta The aortic root size at the sinus of Valsalva is normal. Left Ventricular Outflow Tract Name Value Normal LVOT 2D LVOT Diameter 2.0 cm LVOT Doppler LVOT Peak Gradient 9 mmHg LVOT Mean Gradient 5 mmHg LVOT VTI 30 cm LVOT VTI/AV VTI Ratio 0.7 LVOT Stroke Volume 91 ml LVOT CO 7.0 l/min LVOT CI 3.9 l/min/m2 Pulmonic Valve Name Value Normal PV Doppler PV Peak Gradient 4 mmHg Mitral Valve Name Value Normal
== END 2023-11-01 15:05 | disposition home or self-care (01) ==
LOC: ANHCARD 15:06
PROVIDERS: PCP Internal Medicine; Visit Provider Clinical Nurse Specialist
DX: R42 Dizziness and giddiness (principal); I44.0 Atrioventricular block, first degree
CPT/HCPCS: 93306

== ENCOUNTER 2024-05-10 14:38 | Emergency (ER) | payer BC, SELFPAY ==
[2024-05-10 15:06] VITALS: BP 142/87; PULSE 81; RESP 16; TEMP 37.1; O2SAT 98
--- NOTE | 2024-05-10 15:17 | ED.FEMALEGU ---
HPI - Female Genitourinary General Chief complaint: Urogenital-Female Stated complaint: Urinary Problem History of Present Illness HPI Narrative: patient presents with buring with urination no flank pain no gross hematuria no concern for std Related Data Home Medications ?Medication ?Instructions ?Recorded ?Confirmed ?Last Taken ?Type clonazepam 0.5 mg tablet (Klonopin) 0.5 mg PO DAILY 03/08/20 10/07/23 1 Day Ago History ~03/13/20 Allergies Allergy/AdvReac Type Severity Reaction Status Date / Time Iodinated Contrast Media Allergy Unknown SWELLING, Verified 05/10/24 15:13 HIVES Contrast Media Allergy Severe Swelling Uncoded 05/10/24 15:13 Review of Systems Review of Systems: CONSTITUTIONAL: Denies fever, chills, or sweats. EYES: Denies visual changes, redness, or discharge. ENT: Denies rhinorrhea, congestion, sore throat, or otalgia. CARDIOVASCULAR: Denies chest pain, palpitations, or edema. RESPIRATORY: Denies cough or dyspnea. GASTROINTESTINAL: Denies abdominal pain, nausea, vomiting, or diarrhea. GENITOURINARY: Denies dysuria or hematuria. SKIN: Denies rash or itching. MUSCULOSKELETAL: Denies back pain, joint pain, or myalgia. NEUROLOGIC: Denies headache, numbness, or weakness. PSYCHIATRIC: Denies anxiety or depression. [facility] Past Medical History Medical History Depression Diverticulitis HLD (hyperlipidemia) Insomnia Meckels diverticulum Ovarian cyst Surgical History Surgical History H/O hernia repair 03/14/2020 History of hysterectomy History of intestinal surgery resection of Meckels diverticulum Left inguinal hernia S/P laparoscopic procedure pelvic laparoscopy Family History Family History Father Family history of malignant neoplasm of esophagus Hypertension Family history of coronary artery disease Sibling Patient's brother is in good health Mother HLD (hyperlipidemia) History of kidney cancer Son Asthma Social History Social History Smoking packs per day: 0.5 Smoking cigarettes per day: 10.0 Years smoked: 20 Smoking pack-years: 10.00 Smoking status: Current every day smoker Tobacco type: cigarettes Smoking end date: 05/25/19 Alcohol intake: current Drinks per week: 3 Alcohol use details: Pt drinks socially. Substance use: unknown Gender identity (if verbalized by the patient): Female Spiritual care concerns: No Comments At time of signature, agree with nursing past medical, surgical, social and family history. There is no relevant family history pertinent to the presenting complaint Exam Narrative: GENERAL: Well-appearing, well-nourished, and in no acute distress. HEAD: Normocephalic, atraumatic. EYES: PERRLA and EOMI. ENT: Nares clear, no rhinorrhea or epistaxis. Mucous membranes moist. NECK: Supple. CHEST: Clear to auscultation. No respiratory distress. HEART: Regular rate and rhythm. No murmur heard. Normal peripheral pulses. ABDOMEN: Soft, nontender, nondistended, normal active bowel sounds. No CVA tenderness EXTREMITIES: Normal range of motion. No edema. SKIN: Warm, dry, no rash. NEURO: No focal deficits. Alert and oriented x3. [place] Coma Scale Eye Opening: Spontaneous 4 [place] Coma Scale Motor: Obeys Commands 6 [place] Coma Scale Verbal: Oriented 5 [place] Coma Scale Total 15 Course Course Level of Care: Express Care Visit Vital Signs Vital signs: Vital Signs Temperature 37.1 C 05/10/24 15:06 Pulse Rate 81 05/10/24 15:06 Respiratory Rate 16 05/10/24 15:06 Blood Pressure 142/87 H 05/10/24 15:06 Pulse Oximetry 98 05/10/24 15:06 Oxygen Delivery Room Air 05/10/24 15:06 Temperature 37.1 C 05/10/24 15:06 Pulse Rate 81 05/10/24 15:06 Respiratory Rate 16 05/10/24 15:06 Blood Pressure 142/87 H 05/10/24 15:06 Pulse Oximetry 98 05/10/24 15:06 Oxygen Delivery Room Air 05/10/24 15:06 Discharge Plan Discharge Clinical Impression: Dysuria Patient Disposition: Home, Self-Care Condition: Stable Instructions: Antibiotic Form Additional Instructions: Increase fluids especially cranberry juice and water Avoid caffeine and carbonated beverages Antibiotic as directed Medicine as directed--cautioned it will cause your urine to be bright orange Tylenol/ibuprofen for pain or fever Follow-up with her primary care provider if further problems or concerns Recheck if you have fever over 101, nausea and vomiting -If you have any worsening of symptoms or any other concerns please go to the ED immediately. Patient Language: Chinese Prescriptions: New sulfamethoxazole-trimethoprim 800-160 mg tablet 1 tablet PO Q12H 3 Days Qty: 6 0RF No Action clonazepam [Klonopin] 0.5 mg tablet 0.5 mg PO DAILY hydrocodone-acetaminophen 5-325 mg tablet 1 tablet PO Q8H PRN (Reason: pain) Qty: 14 0RF cholecalciferol (vitamin D3) 1,250 mcg (50,000 unit) tablet 1,250 mcg PO WEEKLY Qty: 8 0RF sertraline 100 mg tablet 100 mg PO DAILY Qty: 90 0RF Rx Instructions: DUE FOR APPOINTMENT IN MARCH Follow-up/Referrals: Monty Umana, [Primary Care Provider] -
[2024-05-10 16:34] LABS: EDUAAPPEAR Cloudy; EDUABILI Negative (Negative); EDUABLOOD 2+ (Negative); EDUACOLOR1 Yellow; EDUAGLUCOSE Negative (Negative); EDUAKETONE Negative (Negative); EDUALEUKO Trace (Negative); EDUANITRATE Negative (Negative); EDUAPH 5.5; EDUAPROTEIN 2+ (Negative); EDUAUROBILI 0.2
--- OUTSIDE RECORDS SUMMARY | 2024-05-17 23:20 | XMS_ITS | Encounter Summary ---
Author Organization [facility] Healthcare Address [address] [place] [address] Care Team Providers Care Outpatient Coordinator Name Role Phone Unavailable Primary Care Provider Unavailabl e Encounter Details Date Type Department Care Team (Late st Contact Info) Description 05/29/2010 8:14 PM TRIMMING INSPECTOR - 05/30/2010 12:22 AM TRIMMING INSPECTOR Hospital Encounter [facility] Nelson, Saida Smith, [address] [facility] [address] [place] [address] Raúl Tim MD [address] [place] [id number] Infection of genitourinary tract antepartum; Urinary tract infection; Mild hyperemesis gravidarum, antepartum Social History Tobacco Use Types Packs/Day Years Used Date Smoking Tobacco: Never Assessed Comments Unknown Sex and Gender Information Value Date Recorded Sex Assigned at Not on file Legal Sex Female 12:41 PM TRIMMING INSPECTOR Gender Identity Not on file Sexual Orientation Not on file documented as of this encounter Plan of Treatment Not on file documented as of this encounter Visit Diagnoses Diagnosis Infection of genitourinary tract antepartum Infections of genitourinary tract antepartum Urinary tract infection Urinary tract infection, site not specified Mild hyperemesis gravidarum, antepartum documented in this encounter
--- OUTSIDE RECORDS SUMMARY | 2024-05-17 23:20 | XMS_ITS | Encounter Summary ---
Author Organization [facility] Healthcare Address [address] [place] [address] Care Team Providers Care Director Athletic Name Role Phone Monty Umana DO Unavailable [phone] Homero Santos MD Primary Care Provi charles Reason for Visit * Reason Onset Date Comments labs need to be completed 06/17/2023 Encounter Details Date Type Department Care Team (Late st Contact Info) Description 06/17/2023 Telephone [facility] Family Medicine [address] [place] [address] Homero Santos MD [address] [place] [address] labs need to be completed Social History Tobacco Use Types Packs/Day Years Used Date Smoking Tobacco: Every Day Cigarettes 0.5 30 PHQ-2 Answer Date Recorded PHQ-2 Total Score (If total score is 3 or more points, staff should administer the PHQ-9) 6 05/22/2023 Personal Safety Answer Date Recorded Getting School Help Needed Not on file 05/23 Comments Unknown Sex and Gender Information Value Date Recorded Sex Assigned at Not on file Legal Sex Female 12:41 PM HEDGE TRIMMER Gender Identity Not on file Sexual Orientation Not on file documented as of this encounter Miscellaneous Notes * Telephone Encounter - Bibi Freitas - 06/17/2023 4:28 PM CST Called and spoke to pt to remind her to complete fasting labs by the end of the week. E TRIMMER documented in this encounter Plan of Treatment Not on file documented as of this encounter Visit Diagnoses Not on filedocumented in this encounter Care Teams Director Athletic Relationship Specialty Start Date End Date Homero Santos MD [address] [address] PCP - General Family Medicine 06/05/23 Monty Umana DO 04/26/21 documented as of this encounter
--- OUTSIDE RECORDS SUMMARY | 2024-05-17 23:20 | XMS_ITS | Referral Summary ---
Author Organization [facility] [address] [facility] [place] [address] Care Team Providers Care Truss Builder Name Role Phone Monty UmanaRaman DO Unavailable [phone] Homero Santos MD Primary Care Provi charles Allergies Active Allergy Reactions Criticality Noted Date Comments Iodinated Contrast Media Iodinated Contrast Media Swelling Medium 04/26/2021 Medications sertraline (ZOLOFT) 100 mg tablet Take 1 tablet (100 mg total) by mouth daily Active clonazePAM (KlonoPIN) 0.5 mg tablet Take 1 tablet (0.5 mg total) by mouth 2 (two) times a day Active chlordiazePOXID E (LIBRIUM) 10 mg capsuleIndicati ons:Alcohol Withdrawal Syndrome Take 1 capsule (10 mg total) by mouth 3 (three) times a day as needed for withdrawal symptoms 42 capsule 4 Active Active Problems No known active problems Immunizations Name Administration Dates Next Due Influenza, Unspecified 05/22/2023(Deferred: Angela ent Refused) Social History Tobacco Use Types Packs/Day Years Used Date Smoking Tobacco: Every Day Cigarettes 0.5 30 Tobacco Cessation:Ready to Q uit: Not Asked; Counseling Given: Not Answered PHQ-2 Answer Date Recorded PHQ-2 Total Score (If total score is 3 or more points, staff should administer the PHQ-9) 6 05/22/2023 Personal Safety Answer Date Recorded Getting School Help Needed Not on file 05/23 Comments Unknown Sex and Gender Information Value Date Recorded Sex Assigned at Not on file Legal Sex Female 12:41 PM BUSINESS EMPLOYMENT SPECIALIST Gender Identity Not on file Sexual Orientation Not on file Last Filed Vital Signs Vital Sign Reading Time Taken Comments Blood Pressure 170/100 05/22/2023 9:52 AM BUSINESS EMPLOYMENT SPECIALIST Pulse 73 05/22/2023 9:52 AM BUSINESS EMPLOYMENT SPECIALIST Temperature 36.5 ??C (97.7 ??F) 05/31/2021 8:24 AM CS T Respiratory Rate 18 05/22/2023 9:52 AM BUSINESS EMPLOYMENT SPECIALIST Oxygen Saturation 98% 05/22/2023 9:52 AM BUSINESS EMPLOYMENT SPECIALIST Inhaled Oxygen Concentration - - Weight 68.5 kg (151 lb) 05/22/2023 9:52 AM BUSINESS EMPLOYMENT SPECIALIST Height 167.6 cm (5' 6 ) 05/22/2023 9:52 AM BUSINESS EMPLOYMENT SPECIALIST Body Mass Index 24.37 05/22/2023 9:52 AM BUSINESS EMPLOYMENT SPECIALIST Plan of Treatment Not on file Procedures Procedure Name Priority Date/Time Associated Diagnosis Comments COLONOSCOPY Routine 04/02/2016 from Last 3 Months or Most Recently Relevant to Health Maintenance Results * COLONOSCOPY (04/02/2016) Historical Provider HEALTH MAINTENANCE Final Result from Last 3 Months or Most Recently Relevant to Health Maintenance Insurance [facility] [employer] [place] [employer] [place] Care Teams Truss Builder Relationship Specialty Start Date End Date Homero Santos MD [address] [address] PCP - General Family Medicine 06/05/23 Monty Umana DO 04/26/21
--- OUTSIDE RECORDS SUMMARY | 2024-05-17 23:20 | XMS_ITS | Encounter Summary ---
Author Organization [facility] Healthcare Address [address] [place] [address] Care Team Providers Care Insurance Territory Manager Name Role Phone Raúl Tim MD Primary Care Provider [phone] Encounter Details Date Type Department Care Team (Latest Contact Info) Description 04/27/2014 4:42 PM BOOK EDITOR - 04/27/2014 11:54 PM BOOK EDITOR Hospital Encounter [facility] [place], [place] [id number] [facility] [address] [place] [address] Chest pain; Pain in soft tissues of limb; First degree atrioventricular block; Tobacco use disorder Social History Tobacco Use Types Packs/Day Years Used Date Smoking Tobacco: Never Assessed Comments Unknown Sex and Gender Information Value Date Recorded Sex Assigned at Not on file Legal Sex Female 12:41 PM BOOK EDITOR Gender Identity Not on file Sexual Orientation Not on file documented as of this encounter Plan of Treatment Not on file documented as of this encounter Procedures Procedure Name Priority Date/Time Associated Diagnosis Comments PLASMA TROPONIN I Routine 04/27/2014 10: 48 PM BOOK EDITOR BLOOD D-DIMER Routine 04/27/2014 8:25 PM BOOK EDITOR XR CHEST 1 VIEW Routine 04/27/2014 7:37 PM BOOK EDITOR PLASMA TROPONIN I Routine 04/27/2014 6:4 0 PM BOOK EDITOR PLASMA LIPASE Routine 04/27/2014 6:40 PM BOOK EDITOR PLASMA COMPREHENSIVE METABOLIC PANEL Routine 04/27/2014 6:40 PM BOOK EDITOR PLASMA AMYLASE Routine 04/27/2014 6:40 PM BOOK EDITOR BLOOD CELL COUNT (CBC), MORPHOLOGIC EXAM Routine 04/27/2014 6:40 PM BOOK EDITOR BLOOD B-TYPE NATRIURETIC PEPTIDE (BNP) Routine 04/27/2014 6:40 PM BOOK EDITOR ELECTROCARDIOGRAPHY (ECG) 04/27/2014 DISCHARGE LABORATORY CUMULATIVE REPORT 04/27/2014 documented in this encounter Results * Plasma troponin I (04/27/2014 10:48 PM BOOK EDITOR) [facility] Troponin I <0.03 0.00 - 0.14 ng/ml HISTORICAL RESULTS Comment: Troponin Reference Ranges: Normal: ?0.00 - 0.14 ng/mL Indeterminate: ?0.15 - 0.50 ng/mL NM / Cardiac Muscle Damage: ?>0.50 ng/mL Plasma 04/27/2014 10:4 8 PM BOOK EDITOR Leanna Colvin MD LAB BLOOD ORDERABLES F inal Result HISTORICAL RESULTS * Blood D-dimer (04/27/2014 8:25 PM BOOK EDITOR) [facility] D-dimer <0.2 0.0 - 0.5 mcg/ml FEU HISTORICAL RESULTS Comment: The D-Dimer result should not be used as the sole indicator to rule in or exclude a diagnosis of Pulmonary Embolism or Deep Vein Thrombosis. Blood specimen (specimen) 04/27/2014 8:25 PM BOOK EDITOR Leanna Colvin MD LAB BLOOD ORDERABLES F inal Result HISTORICAL RESULTS * XR Chest 1 View (04/27/2014 7:37 PM BOOK EDITOR) Anatomical Region Laterality Modality Body, Chest N/A Radiographic Elva ging 04/27/2014 7:37 PM BOOK EDITOR Narrative 04/28/2014 1:22 PM BOOK EDITOR DATE OF EXAM: ??Dec ??2013 ??7:37PM Acc#: ??[id number] ??EDX 0031 - XR Chest Portable ?? DIAGNOSIS: ??HEAVINESS IN CHEST AND PAIN IN CLINICAL HISTORY: ?? Chest Pain_Chest Pain RESULT: \ CHEST: Portable AP view of the chest. ??Lungs clear. ??Cardiovascular structures unremarkable. ?? IMPRESSION: ?\ NEGATIVE STUDY. CONSTRUCTION SAFETY MANAGER: ??TR6 TRANSCRIBE DATE/TIME: ??Apr 28 2014 12:54P RADIOLOGIST: ??JAIME PATRICIA M.D. ??READ ON: ??Dec ??2013 ??7:49P ORDERING DR: ARMANI HAMILTON M.D. THIS DOCUMENT HAS BEEN ELECTRONICALLY SIGNED BY: ??JAIME PATRICIA M.D. ??ON: ??Apr 28 2014 ??1:22P Procedure Note Provider, Byron, - 09/18/2016 DATE OF EXAM: Apr 27 2014 7:37PM Acc#: [id number] EDX 0031 - XR Chest Portable DIAGNOSIS: HEAVINESS IN CHEST AND PAIN IN CLINICAL HISTORY: Chest Pain_Chest Pain RESULT: \ CHEST: Portable AP view of the chest. Lungs clear. Cardiovascular structures unremarkable. IMPRESSION: \ NEGATIVE STUDY. CONSTRUCTION SAFETY MANAGER: TR6 TRANSCRIBE DATE/TIME: Apr 28 2014 12:54P RADIOLOGIST: JAIME PATRICIA M.D. READ ON: Apr 27 2014 7:49P ORDERING DR: ARMANI HAMILTON M.D. THIS DOCUMENT HAS BEEN ELECTRONICALLY SIGNED BY: JAIME PATRICIA M.D. ON: Apr 28 2014 1:22P us Historical Provider MD IMG XR PROCEDURES Final R esult * Blood cell count (CBC), morphologic exam (04/27/2014 6:40 PM BOOK EDITOR) WBC 8.1 3.8 - 9.8 K/cumm HISTORICAL RESULTS RBC 4.22 4.20 - 5.20 M/cumm HISTORICAL RESULTS Hgb 12.7 12.0 - 15.0 g/dl HISTORICAL RESULTS Hct 38.7 37.0 - 47.0 % HISTORICAL RESULTS MCV 91.7 82.0 - 96.0 fl HISTORICAL RESULTS MCH 30.1 27.0 - 32.0 pg HISTORICAL RESULTS MCHC 32.8 29.0 - 35.0 g/dl HISTORICAL RESULTS Platelets 338 150 - 450 K/cumm HISTORICAL RESULTS RDW 43.8 36.4 - 46.3 fl HISTORICAL RESULTS Rdw 13.2 11.5 - 14.5 % HISTORICAL RESULTS MPV 10.4 8.6 - 12.6 fl HISTORICAL RESULTS Neutrophils 50.9 42.0 - 85.0 % HISTORICAL RESULTS Neutrophils, abs 4.1 2.1 - 8.5 K/cumm HISTORICAL RESULTS Lymphocytes 40.5 16.0 - 52.0 % HISTORICAL RESULTS Lymphocytes, abs 3.3 0.8 - 5.2 K/cumm HISTORICAL RESULTS Monos 6.3 1.0 - 13.0 % HISTORICAL RESULTS Monocytes, absolute 0.5 0.0 - 1.3 K/cumm HISTORICAL RESULTS Eosinophils 2.1 0.0 - 7.0 % HISTORICAL RESULTS Eosinophils, abs 0.2 0.0 - 0.7 K/cumm HISTORICAL RESULTS Basophils 0.1 0.0 - 4.0 % HISTORICAL RESULTS Basophils, abs 0.0 0.0 - 0.4 K/cumm HISTORICAL RESULTS Young granulocytes, % 0.1 0.0 - 1.0 % HISTORICAL RESULTS Young granulocyte 0.01 0.00 - 0.10 K/cumm HISTORICAL RESULTS NRBC 0.0 0.0 - 0.2 #/100 WBC HISTORICAL RESULTS NRBC, abs 0.00 0.00 - 0.01 K/cumm HISTORICAL RESULTS Blood specimen (specimen) 04/27/2014 6:40 PM BOOK EDITOR Armani Hamilton DO LAB BLOOD ORDERABLES Final Result Performing Organization Address [facility] de Phone Number HISTORICAL RESULTS * Blood B-type natriuretic peptide (BNP) (04/27/2014 6:40 PM BOOK EDITOR) [facility] BNP 17 0 - 100 pg/ml HISTORICAL RESULTS Blood specimen (specimen) 04/27/2014 6:40 PM BOOK EDITOR Armani Hamilton DO LAB BLOOD ORDERABLES Final Result Performing Organization Address [facility] de Phone Number HISTORICAL RESULTS * Plasma troponin I (04/27/2014 6:40 PM BOOK EDITOR) [facility] Troponin I <0.03 0.00 - 0.14 ng/ml HISTORICAL RESULTS Comment: Troponin Reference Ranges: Normal: ?0.00 - 0.14 ng/mL Indeterminate: ?0.15 - 0.50 ng/mL NM / Cardiac Muscle Damage: ?>0.50 ng/mL Plasma 04/27/2014 6:40 PM BOOK EDITOR Armani Hamilton DO LAB BLOOD ORDERABLES Final Result Performing Organization Address [facility] de Phone Number HISTORICAL RESULTS * Plasma comprehensive metabolic panel (04/27/2014 6:40 PM BOOK EDITOR) [facility] BUN 14 8 - 24 mg/dl HISTORICAL RESULTS Glucose 101 70 - 199 mg/dl HISTORICAL RESULTS Sodium 140 135 - 145 mmol/L HISTORICAL RESULTS K, pl 4.6 3.5 - 5.1 mmol/L HISTORICAL RESULTS Chloride 104 100 - 114 mmol/L HISTORICAL RESULTS CO2 28 22 - 32 mmol/L HISTORICAL RESULTS Creatinine 0.64 0.60 - 1.30 mg/dl HISTORICAL RESULTS AST 18 7 - 40 Units/L HISTORICAL RESULTS ALT 16 1 - 45 Units/L HISTORICAL RESULTS Alk phos 50 30 - 110 Units/L HISTORICAL RESULTS Calcium 9.6 8.4 - 10.5 mg/dl HISTORICAL RESULTS Bilirubin 0.40 0.10 - 1.30 mg/dl HISTORICAL RESULTS Protein, pl 7.0 6.0 - 8.3 g/dl HISTORICAL RESULTS Alb 4.7 3.2 - 4.8 g/dl HISTORICAL RESULTS Globulin 2.3 2.0 - 4.3 g/dl HISTORICAL RESULTS A. gap 13 8 - 16 mmol/L HISTORICAL RESULTS eGFR >90 90 - 200 ml/min/1.7 3 m2 HISTORICAL RESULTS Comment: If this individual is -[place], multiply result by 1.21 Repeated results of less than 60 is indicative of chronic kidney disease. MDRD formula has not been validated on individuals greater than 70 years old. Plasma 04/27/2014 6:40 PM BOOK EDITOR Armani Hamilton DO LAB BLOOD ORDERABLES Final Result Performing Organization Address [facility] de Phone Number HISTORICAL RESULTS * Plasma lipase (04/27/2014 6:40 PM BOOK EDITOR) Lip 35 20 - 50 Units/L HISTORICAL RESULTS Plasma 04/27/2014 6:40 PM BOOK EDITOR Armani Hamilton DO LAB BLOOD ORDERABLES Final Result Performing Organization Address [facility] de Phone Number HISTORICAL RESULTS * Plasma amylase (04/27/2014 6:40 PM BOOK EDITOR) Shelli, pl 56 28 - 100 Units/L HISTORICAL RESULTS Plasma 04/27/2014 6:40 PM BOOK EDITOR Armani Hamilton DO LAB BLOOD ORDERABLES Final Result Performing Organization Address [facility] de Phone Number HISTORICAL RESULTS * DISCHARGE LABORATORY CUMULATIVE REPORT (04/27/2014) Narrative 04/27/2014 Ordered by an unspecified provider. Historical Provider LAB BLOOD ORDERABLES Sparkle l Result * ELECTROCARDIOGRAPHY (ECG) (04/27/2014) Narrative 04/27/2014 Ordered by an unspecified provider. us Historical Provider ECG ORDERABLES Final Res ult documented in this encounter Visit Diagnoses Diagnosis Chest pain Unspecified chest pain Pain in soft tissues of limb First degree atrioventricular block Tobacco use disorder documented in this encounter Care Teams Insurance Territory Manager Relationship Specialty Start Date End Date Raúl Tim MD PCP - General 06/22/11 01/05/17 documented as of this encounter
--- OUTSIDE RECORDS SUMMARY | 2024-05-17 23:20 | XMS_ITS | Clinical Summary ---
Author Organization [facility] [address] Address [facility] [place] [address] Care Team Providers Care Geography Department Chair Name Role Phone Monty UmanaRaman DO Unavailable [phone] Homero Santos MD Primary Care Provi charles [...] Due Influenza, Unspecified 05/22/2023(Deferred: Angela ent Refused) Surgical History Surgery Date Site/Laterality Comments MECKEL DIVERTICULUM EXCISION 11/2012 HYSTERECTOMY 04/2016 Medical History Medical History Date Comments Depression Anxiety PTSD (post-traumatic stress disorder) Family History Medical History Relation Name Comments No Known Problems Brother x 2 Esophageal cancer Father No Known Problems Mother Relation Name Status Comments Brother x 2 Alive Father Mother Alive Social History Tobacco Use Types Packs/Day Years [...] on file Legal Sex Female 12:41 PM EXTRACTOR OPERATOR Gender Identity Not on file Sexual Orientation Not on file Obstetrics History Last Filed Vital Signs Vital Sign Reading Time Taken Comments Blood Pressure 170/100 05/22/2023 9:52 AM EXTRACTOR OPERATOR Pulse 73 05/22/2023 9:52 AM EXTRACTOR OPERATOR Temperature 36.5 ??C (97.7 ??F) 05/31/2021 8:24 AM CS T Respiratory Rate 18 05/22/2023 9:52 AM EXTRACTOR OPERATOR Oxygen Saturation 98% 05/22/2023 9:52 AM EXTRACTOR OPERATOR Inhaled Oxygen Concentration - - Weight 68.5 kg (151 lb) 05/22/2023 9:52 AM EXTRACTOR OPERATOR Height 167.6 cm (5' 6 ) 05/22/2023 9:52 AM EXTRACTOR OPERATOR Body Mass Index 24.37 05/22/2023 9:52 AM EXTRACTOR OPERATOR Plan of Treatment Health Maintenance Due Date Last Done Comments Breast Cancer Screening-Mammogram 1972 Hepatitis C Screening 1972 Pneumococcal vaccine <65 (1 of 2 - PCV) 01/18/1978 DTaP/Tdap/Td Vaccine (1 - Tdap) 01/18/1983 Hepatitis B Screening 01/18/1990 Regular Well Visit/Exam 18-64 01/18/1990 Zoster Vaccine (1 of 2) 01/18/2022 Influenza Vaccine (#1) 2024 Depression Screening 05/22/2024 05/22/2023, 05/22/19 24 Colon Cancer Screening-Colonoscopy 04/02/20262015 Procedures Procedure Name Priority Date/Time Associated Diagnosis Comments COLONOSCOPY Routine 04/02/2016 from Last 3 Months or Most Recently Relevant to Health Maintenance Results * COLONOSCOPY (04/02/2016) us Historical Provider HEALTH MAINTENANCE Final Result from Last 3 Months or Most Recently Relevant to Health Maintenance Insurance [employer] Care Teams Geography Department Chair Relationship Specialty Start Date End Date Homero Santos MD [address] [facility] [address] [place] [address] PCP - General Family Medicine 06/05/23 Monty Umana DO 04/26/21
--- OUTSIDE RECORDS SUMMARY | 2024-05-17 23:20 | XMS_ITS | Encounter Summary ---
Author Organization [facility] Healthcare Address [address] [place] [address] Care Team Providers Care Water Control Station Engineer Name Role Phone Monika Umana DO Primary Care Provider [phone]- [phone] Encounter Details Date Type Department Care Team (Late st Contact Info) Description 01/06/2017 10:46 AM CDT - 01/06/2017 1:14 PM CDT Emergency [facility] Emergency Department [address] [place] [address] Sushila Appiah MD [address] [place] [id number] Discharge Disposition: Discharge to home or self care Social History Tobacco Use Types Packs/Day Years Used Date Smoking Tobacco: Never Assessed Comments Unknown Sex and Gender Information Value Date Recorded Sex Assigned at Not on file 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 Gender Identity Not on file Sexual Orientation Not on file documented as of this encounter Discharge Disposition Disposition Code Departure Means Destination Discharge to home or self care documented in this encounter Plan of Treatment Not on file documented as of this encounter Procedures Procedure Name Priority Date/Time Associated Diagnosis Comments XR CHEST PORTABLE Routine 01/06/2017 4:2 0 PM CDT EGFR STAT 01/06/2017 11:00 AM CDT DIFFERENTIAL AUTO STAT 01/06/2017 11: 00 AM CDT PRO B-TYPE NATRIURETIC PEPTIDE STAT 01/06/2017 11:00 AM CDT CBC WITH AUTO DIFFERENTIAL STAT 01/06 11:00 AM CDT APTT STAT 01/06/2017 11:00 AM CDT PROTIME-INR STAT 01/06/2017 11:00 AM CDT TROPONIN T STAT 01/06/2017 11:00 AM CDT MAGNESIUM STAT 01/06/2017 11:00 AM CDT COMPREHENSIVE METABOLIC PANEL STAT 01/06/2017 11:00 AM CDT ELECTROCARDIOGRAPHY (ECG) 01/06/2017 DISCHARGE LABORATORY CUMULATIVE REPORT 01/06/2017 12:00 AM CDT documented in this encounter Results * XR Chest Portable (01/06/2017 4:20 PM CDT) Anatomical Region Laterality Modality Body N/A Radiographic Elva ging 01/06/2017 4:20 PM CDT Narrative 01/06/2017 4:20 PM CDT XR Chest Portable ? [id number] ??Acc#: ??[id number] DATE OF EXAM: ??Jan 06 2017 ?? XR Chest Portable ? [id number] HISTORY: Chest Pain. COMPARISON: 04/27/2014 FINDINGS: Heart size is normal. ??Lungs are clear. IMPRESSION: NO ACTIVE DISEASE. Electronically signed by: Monica Chacon M.D. Interpreting Physician: ??MONICA CHACON M.D. ??Read on: ??Jan 06 2017 11:42A Transcribed by: ??PSC ??On: Jan 06 2017 11:40A Approved Electronically by: ??MONICA CHACON M.D. ??on: ??Jan 06 2017 11:40A Ordering DR: ?? Attending DR: MONIKA UMANA Attending: ??MONIKA UMANA Requesting: ??, Requesting Fax: ??-- Attending Fax: ??-- Attending ID: ??[id number] Requesting ID: ??[id number] NextGen Order #: ?? Procedure Note Miscellaneous, Not In File / Provider, MD Byron - 01/08/2017 XR Chest Portable [id number] Acc#: [id number] DATE OF EXAM: Jan 06 2017 XR Chest Portable [id number] HISTORY: Chest Pain. COMPARISON: 04/27/2014 FINDINGS: Heart size is normal. Lungs are clear. IMPRESSION: NO ACTIVE DISEASE. Electronically signed by: Monica Chacon M.D. Interpreting Physician: MONICA CHACON M.D. Read on: Jan 06 2017 11:42A Transcribed by: BC On: Jan 06 2017 11:40A Approved Electronically by: MONICA CHACON M.D. on: Jan 06 2017 11:40A Ordering DR: Attending DR: MONIKA UMANA Attending: MONIKA UMANA Requesting: , Requesting Fax: -- Attending Fax: -- Attending ID: [id number] Requesting ID: [id number] NextGen Order #: us Not In File Miscellaneous IMG XR PROCEDURES Sparkle l Result * Pro B-type natriuretic peptide (01/06/2017 11:00 AM CDT) NT-proBNP 60 10 - 150 pg/mL [facility] ([place]) Comment: Diagnosis of Congestive Heart Failure: ??Heart Failure Unlikely: All Ages ?Less than 300 pg/ml ??Heart Failure Possible: Less than 50Y ?? 300-450 pg/ml ?50-75 Y ? 300-900 pg/ml ?75-160Y ? 300-1800 pg/ml ?Heart Failure Likely: ?? Less than 50Y ?? Greater than 450 pg/ml ?50-75 Y ? Greater than 900 pg/ml ?75-160 Y ?Greater than 1,800 pg/ml ??Renal Failure: ?All Ages ?Greater than 1,200 pg/ml Current interpretive data was last revised on 2014. Blood specimen (specimen) 01/06/2017 11:00 AM CDT 01/06/2017 11:02 AM CDT Sushila Appiah MD LAB BLOOD ORDERABLES Final Result Performing Organization Address City/[facility]/ZIP Co de Phone Number DYANADAVID [facility] ([place]) [address] [place] [address] [place] [address] * aPTT (01/06/2017 11:00 AM CDT) aPTT 35.4 25.0 - 37.0 sec [facility] ([place]) Blood specimen (specimen) 01/06/2017 11:00 AM CDT 01/06/2017 11:02 AM CDT Sushila Appiah MD LAB BLOOD ORDERABLES Final Result Performing Organization Address City/[facility]/[place] Co de Phone Number [facility] ([place]) [address] [place] [address] [place] [address] * Protime-INR (01/06/2017 11:00 AM CDT) PT 11.4 9.5 - 12.5 sec [facility] ([place]) INR 1.01 0.90 - 1.20 [facility] ([place]) Comment: Interpretive Data Recommended ranges for Protime INR: 2.0 - 3.0 Most indications for Warfarin therapy (e.g. Treatment of DVT, PE, bioprosthetic valve replacement, prophylaxis venous thrombosis, atrial fibrillation). 2.5 - 3.5 Mechanical mitral valve or dual mechanical mitral and Aortic valve replacement. Current Interpretive Data was last revised on 2015. Blood specimen (specimen) 01/06/2017 11:00 AM CDT 01/06/2017 11:02 AM CDT us Sushila Appiah MD LAB BLOOD ORDERABLES Final Result [facility] ([place]) [address] [facility] [place] [address] * (ABNORMAL) Comprehensive metabolic panel (01/06/2017 11:00 AM CDT) Sodium 137 135 - 145 mmol/L [facility] ([place]) Potassium 4.6 3.5 - 5.1 mmol/L [facility] ([place]) Chloride 98 97 - 110 mmol/L [facility] ([place]) CO2 26 22 - 32 mmol/L [facility] ([place]) Anion gap 13 8 - 16 mmol/L [facility] ([place]) Glucose 102 70 - 199 mg/dL [facility] ([place]) Comment: Interpretive Data Note:The glucose is assumed non fasting Fastin-99 mg/dL Random: ??70-199 mg/dL Either a fasting glucose > 126 mg/dL or a random glucose > 200 mg/dL plus symptoms is diagnostic of diabetes when confirmed on another day. Fasting values > 100 mg/dL but < 125 mg/dL are diagnostic of impaired fasting glucose. Current interpretive data was last revised on 2014. BUN 15.0 8.0 - 25.0 mg/dL [facility] ([place]) Creatinine 0.72 0.60 - 1.10 mg/dL [facility] ([place]) BUN/creat ratio 21(H) 10 - 20 [facility] ([place]) Calcium 9.3 8.6 - 10.2 mg/dL [facility] ([place]) Protein, sr 7.7 6.0 - 8.4 g/dL [facility] ([place]) Albumin 4.8 3.6 - 5.0 g/dL [facility] ([place]) Alk phos 53 40 - 130 Units/L [facility] ([place]) ALT 13 5 - 45 Units/L [facility] ([place]) AST 16 10 - 40 Units/L [facility] ([place]) Bilirubin, total 0.2 <=1.2 mg/dL [facility] ([place]) Blood specimen (specimen) 01/06/2017 11:00 AM CDT 01/06/2017 11:02 AM CDT us Sushila Appiah MD LAB BLOOD ORDERABLES Final Result [facility] ([place]) [facility] [place] [address] * eGFR (01/06/2017 11:00 AM CDT) eGFR >60 mL/min/1.7 3 m2 [facility] ([place]) Comment: Interpretive Data Reference Interval Normal ?>/= 90 mL/min/1.73m2 Mildly decreased* ? 60 - 89 mL/min/1.73m2 Mildly to moderately decreased ?45 - 59 mL/min/1.73m2 Moderately to severely decreased ??30 - 44 mL/min/1.73m2 Severely decreased ?15 - 29 mL/min/1.73m2 Kidney Failure ?< 15 ??mL/min/1.73m2 *Relative to young adult level If -Russian multiply value by 1.16. Estimated glomerular filtration rate is determined by the CKD-EPI equation recommended by the National Kidney Foundation (KDIGO 2012 Clinical Practice Guideline for the Evaluation and Management of Chronic Kidney Disease. Kidney Intnl Suppl May 2012;3:1). The CKD-EPI equation should not be used for patients with unstable renal function and has not been validated in children and those over 70. Current interpretive data was last reviewed 2015. Blood specimen (specimen) 01/06/2017 11:00 AM CDT 01/06/2017 11:02 AM CDT Sushila Appiah MD LAB BLOOD ORDERABLES Final Result Performing Organization Address [facility]/[place] Co de Phone Number [facility] ([place]) 1 [facility] [place] [address] * Troponin T (01/06/2017 11:00 AM CDT) Troponin T <0.01 0.00 - 0.06 ng/mL [facility] ([place]) Comment: Interpretive Data Troponin table: ? Negative ? 0.00-0.06 ng/ml ? Indeterminate ?0.07-0.10 ng/ml ? Consistent with Myocardial Injury ?Greater than 0.10 ng/ml ?? Current interpretive data was last revised on 2014 Blood specimen (specimen) 01/06/2017 11:00 AM CDT 01/06/2017 11:02 AM CDT Sushila Appiah MD LAB BLOOD ORDERABLES Final Result Performing Organization Address [facility] de Phone Number [facility] ([place]) [address] [facility] [place] [address] * Magnesium (01/06/2017 11:00 AM CDT) Magnesium 2.1 1.6 - 2.4 mg/dL [facility] ([place]) Blood specimen (specimen) 01/06/2017 11:00 AM CDT 01/06/2017 11:02 AM CDT Sushila Appiah MD LAB BLOOD ORDERABLES Final Result Performing Organization Address City/[facility]/[place] Co de Phone Number [facility] ([place]) [address] [facility] [place] [address] * (ABNORMAL) Differential, auto (01/06/2017 11:00 AM CDT) Neutrophil pct 66.7 44.0 - 80.0 % [facility] ([place]) Imm gran pct 0.1 0.0 - 1.0 % [facility] ([place]) Lymphocyte pct 24.8 13.0 - 44.0 % [facility] ([place]) Monocyte pct 6.2 2.0 - 11.0 % [facility] ([place]) Eosinophil pct 1.7 0.0 - 6.0 % [facility] ([place]) Basophil pct 0.5 0.0 - 3.0 % [facility] ([place]) Neutrophil abs 7.27(H) 1.60 - 7.00 K/cumm [facility] ([place]) Imm gran abs 0.01 0.00 - 0.20 K/cumm [facility] ([place]) Lymphocyte abs 2.71 0.50 - 4.30 K/cumm [facility] ([place]) Monocyte abs 0.68 0.10 - 1.00 K/cumm [facility] ([place]) Eosinophil abs 0.19 0.00 - 0.60 K/cumm [facility] ([place]) Basophil abs 0.05 0.00 - 0.30 K/cumm [facility] ([place]) Blood specimen (specimen) 01/06/2017 11:00 AM CDT 01/06/2017 11:02 AM CDT us Sushila Appiah MD LAB BLOOD ORDERABLES Final Result [facility] ([place]) [address] [facility] [place] [address] * (ABNORMAL) CBC with auto differential (01/06/2017 11:00 AM CDT) WBC 10.91(H) 3.80 - 9.80 K/cumm [facility] ([place]) RBC 4.27 3.90 - 5.00 M/cumm [facility] ([place]) Hgb 12.9 12.1 - 15.1 g/dL [facility] ([place]) Hct 38.2 36.1 - 44.3 % [facility] ([place]) MCV 89.5 80.0 - 100.0 fL [facility] ([place]) MCH 30.2 26.7 - 33.7 pg [facility] ([place]) MCHC 33.8 32.7 - 36.0 g/dL [facility] ([place]) RDW CV 12.0 11.5 - 14.6 % [facility] ([place]) Plt 297 140 - 440 K/cumm [facility] ([place]) MPV 10.1 8.0 - 12.0 fL [facility] ([place]) NRBC 0.0 0.0 - 0.0 % [facility] ([place]) NRBC abs 0.00 0.00 - 0.00 K/cumm [facility] ([place]) Blood specimen (specimen) 01/06/2017 11:00 AM CDT 01/06/2017 11:02 AM CDT us Sushila Appiah MD LAB BLOOD ORDERABLES Final Result [facility] ([place]) [address] [facility] Department of Laboratories [place] [id number] * DISCHARGE LABORATORY CUMULATIVE REPORT (01/06/2017 12:00 AM CDT) Narrative 01/06/2017 12:00 AM CDT Ordered by an unspecified provider. Historical Provider LAB BLOOD ORDERABLES Sparkle l Result * ELECTROCARDIOGRAPHY (ECG) (01/06/2017) us Provider Scanning ECG ORDERABLES Final Result documented in this encounter Visit Diagnoses Not on filedocumented in this encounter Care Teams Water Control Station Engineer Relationship Specialty Start Date End Date Monika Umana DO PCP - General 01/06/17 04/25/21 documented as of this encounter
--- OUTSIDE RECORDS SUMMARY | 2024-05-17 23:20 | XMS_ITS | Encounter Summary ---
Author Organization [facility] Healthcare Address [address] [place] [address] Care Team Providers Care Reception Centre Manager Name Role Phone Monty Umana DO Primary Care Provider [phone] Monty Umana DO Unavailable [phone] Homero Santos MD Primary Care Provi charles Reason for Visit * Reason Comments New Patient Establish care Alcohol Problem Alcohol relapse, weston nkrussel rum, a pint a day Encounter Details Date Type Department Care Team (Late st Contact Info) Description 05/22/2023 10:00 AM RENTAL CAR PORTER Office Visit [facility] Family Medicine [address] [place] [address] Homero Santos MD [address] [place] [address] Alcoholic (CMS/HCC) (HCC) (Primary Dx); Annual physical exam; Psychophysiological insomnia Social History Tobacco Use Types Packs/Day Years [...] on file 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 Gender Identity Not on file Sexual Orientation Not on file documented as of this encounter Last Filed Vital Signs Vital Sign Reading Time Taken Comments Blood Pressure 170/100 05/22/2023 9:52 AM RENTAL CAR PORTER Pulse 73 05/22/2023 9:52 AM RENTAL CAR PORTER Temperature - - Respiratory Rate 18 05/22/2023 9:52 AM RENTAL CAR PORTER Oxygen Saturation 98% 05/22/2023 9:52 AM RENTAL CAR PORTER Inhaled Oxygen Concentration - - Weight 68.5 kg (151 lb) 05/22/2023 9:52 AM RENTAL CAR PORTER Height 167.6 cm (5' 6 ) 05/22/2023 9:52 AM RENTAL CAR PORTER Body Mass Index 24.37 05/22/2023 9:52 AM RENTAL CAR PORTER documented in this encounter Ordered Prescriptions Prescription Sig Dispense Quantity Refills Last Filled Start Date End Date chlordiazePOXIDE (LIBRIUM) 10 mg capsuleIndications :Alcohol Withdrawal Syndrome Take 1 capsule (10 mg total) by mouth 3 (three) times a day as needed for withdrawal symptoms 42 capsule 05/22/2023 documented in this encounter Progress Notes * Homero Santos MD - 05/22/2023 10:00 AM CST Images from the original note were not included. Subjective/Objective Patient ID: Kathryn Mathis is a 53 y.o. female. Encounter date: 05/22/2023 Chief Complaint New Patient ([facility]) and Alcohol Problem (Alcohol relapse, drinks rum, a pint a day) HPI Patient [facility] with history of alcohol use disorder. Patient reports she wentfor a 4 week program in October 2022, and relapsed in February. Since then, has been daily drinking, blacking out. Patient wanting and ready for help, reports her children are noticing. Current Outpatient Medications Medication Sig Dispense Refill clonazePAM (KlonoPIN) 0.5 mg tablet Take 1 tablet (0.5 mg total) by mouth 2 (two) times a day sertraline (ZOLOFT) 100 mg tablet Take 1 tablet (100 mg total) by mouth daily chlordiazePOXIDE (LIBRIUM) 10 mg capsule Take 1 capsule (10 mg total) by mouth 3 (three) times a day as needed for withdrawal symptoms 42 capsule 0 No current facility-administered medications for this visit. Iv dye [iodinated contrast media] Social History Tobacco Use Smoking status: Every Day Packs/day: 0.50 Years: 30.00 Additional pack years: 0.00 Total pack years: 15.00 Types: Cigarettes Smokeless tobacco: None Substance and Sexual Activity Drug use: Yes Types: Alcohol Comment: alcohol relapse/ pint rum daily Sexual activity: Defer Alcohol Use: Not on file Review of Systems Respiratory: Negative for shortness of breath. Cardiovascular: Negative for chest pain. Gastrointestinal: Negative for abdominal pain. Neurological: Positive for tremors. Negative for seizures. Psychiatric/Behavioral: Positive for dysphoric mood and sleep disturbance. Vitals BP 170/100 Pulse 73 Resp 18 Ht 167.6 cm (5' 6 ) Wt 68.5 kg (151 lb) SpO2 98% BMI 24.37 kg/m?? Physical Exam Vitals and nursing note reviewed. Neurological: Mental Status: She is alert. Psychiatric: Attention and Perception: Attention and perception normal. Mood and Affect: Affect is tearful. Speech: Speech normal. Behavior: Behavior normal. Behavior is cooperative. Thought Content: Thought content does not include homicidal or suicidal ideation. Cognition and Memory: Cognition and memory normal. Judgment: Judgment normal. Assessment/Plan Diagnoses and all orders for this visit: Alcoholic (CMS/HCC) (HCC) (F10.20) (Primary) Comments: Begin Librium taper as directed. Discussed over 40 min the importance of AA meetings and sponsor. Annual physical exam (Z00.00) Comments: Follow up in 4 weeks with labs. Orders: - Comprehensive metabolic panel; Future - Lipid panel; Future Psychophysiological insomnia (F51.04) Comments: Hold clonazepam for the 1st week of Librium then may restart at night Other orders - chlordiazePOXIDE (LIBRIUM) 10 mg capsule; Take 1 capsule (10 mg total) by mouth 3 (three) times aday as needed for withdrawal symptoms Return in about 4 weeks (around 06/19/2023) for Annual physical. Homero Santos MD AL CAR PORTER documented in this encounter Miscellaneous Notes * Addendum Note - Zuri Tomlin - 05/22/2023 10:00 AM CSTAddended by: ZURI TOMLIN on: 06/20/2023 01:41 PM Modules accepted: Orders AL CAR PORTER documented in this encounter Plan of Treatment Scheduled Orders Name Type Priority Associated Diagnoses Orde r Schedule Comprehensive metabolic panel Lab Routine Annual physical exam Expected: 05/22/2023, Expires: 05/22/2024 Lipid panel Lab Routine Annual physical exam Expected: 05/22/2023, Expires: 05/22/2024 documented as of this encounter Visit Diagnoses Diagnosis Alcoholic (CMS/HCC) (HCC)- Primary Other and unspecified alcohol dependence, unspecified drinking behavior Annual physical exam Routine general medical examination at a health care facility Psychophysiological insomnia Persistent disorder of initiating or maintaining sleep documented in this encounter Care Teams Reception Centre Manager Relationship Specialty Start Date End Date Monty Umana DO PCP - General Internal Medicine 04/26/21 06/04/23 Homero Santos MD [address] [address] PCP - General Family Medicine 06/05/23 Monty Umana DO 04/26/21 documented as of this encounter
--- OUTSIDE RECORDS SUMMARY | 2024-05-17 23:20 | XMS_ITS | Encounter Summary ---
Author Organization [facility] Address [address] [facility] [address] [place] [id number] Care Team Providers Care Edge Inker Uppers Name Role Phone Monty Umana DO Primary Care Provider [phone] Monty Umana DO Unavailable [phone] Reason for Visit * Reason Comments Congestion x 2 days, low grade fever, earache, no taste, Encounter Details Date Type Department Care Team (Late st Contact Info) Description 04/26/2021 3:00 PM CLOTH STOCK SORTER Office Visit [facility] [address] [id number] Alison Adkins, APPRENTICE PAINTER [employer]ECKT[employer] [address] [place], [place] [id number] Acute non-recurrent frontal sinusitis (Primary Dx) Social History Tobacco Use Types Packs/Day Years Used Date Smoking Tobacco: Every Day Comments Unknown Sex and Gender Information Value Date Recorded Sex Assigned at Not on file Legal Sex Female 12:41 PM CLOTH STOCK SORTER Gender Identity Not on file Sexual Orientation Not on file documented as of this encounter Last Filed Vital Signs Vital Sign Reading Time Taken Comments Blood Pressure 122/90 04/26/2021 3:14 PM CLOTH STOCK SORTER Pulse 60 04/26/2021 3:14 PM CLOTH STOCK SORTER Temperature 36.8 ??C (98.3 ??F) 04/26/2021 3:14 PM CS T Respiratory Rate 16 04/26/2021 3:14 PM CLOTH STOCK SORTER Oxygen Saturation 99% 04/26/2021 3:14 PM CLOTH STOCK SORTER Inhaled Oxygen Concentration - - Weight 68.9 kg (152 lb) 04/26/2021 3:14 PM CLOTH STOCK SORTER Height 167.6 cm (5' 6 ) 04/26/2021 3:14 PM CLOTH STOCK SORTER Body Mass Index 24.53 04/26/2021 3:14 PM CLOTH STOCK SORTER documented in this encounter Patient Instructions * Patient Instructions* Alison Adkins, APPRENTICE PAINTER NECKT[employer] - 04/26/2021 3:00 PM CLOTH STOCK SORTER Images from the original note were not included. Finish the entire antibiotic prescription. Take this with food. Eat yogurt or take probiotic daily while on antibiotics. Symptomatic treatments include: -Over the counter antihistamine such as loratadine (Claritin) or cetirizine (Zyrtec) to reduce secretions. The D formula includes pseudoephedrine and can be helpful as a decongestant but SHOULD NOTBE USED IF YOU HAVE A HISTORY OF HIGH BLOOD PRESSURE. -Coricidin HBP may be taken for congestion if you have a history of high blood pressure. -Tessalon, Dextromethorphan (Robitussin) or Delsym for cough -Guafenesin (Mucinex) to thin secretions -Acetaminophen (Tylenol), ibuprofen (Motrin, Advil), or Aleve (naproxen) for pain or fever. -The use of hypertonic saline to irrigate nasal passageways can be helpful. Over the counter systems include Neti Pot and Nasopure. Use with distilled water. -Salt water gargles and throat lozenges can be helpful for sore throat. -To prevent spreading the illness to others cover your sneeze and cough into your arm and not your hand, don't allow others to eat or drink with the same utensils or glass, and use hand sales and production manager before touching people or common surfaces. -Apply warm packs to face to facilitate sinus drainage. - Use cool mist humidifier in bedroom at night. -Increase fluid consumption and Rest. -Follow up with your PCP in 1 week or sooner if symptoms worsen or are not improving as planned. -If you experience any shortness of breath, chest pain, or high fever >101, go to the Emergency Room. GO TO EMERGENCY ROOM OR CALL 911 WITH ANY OF THE FOLLOWING SYMPTOMS: HIGH, PERSISTENT FEVER >101; SWELLING, INFLAMMATION, OR REDNESS AROUND EYES, ABNORMAL EYE MOVEMENTS, CHEST PAIN, SHORTNESS OF BREATH, VISION CHANGES (DOUBLE VISION OR IMPAIRED VISION); SEVERE HEADACHE; ALTERED MENTAL STATUS. THESE ARE SIGNS OF A RARE, BUT SERIOUS COMPLICATION AND REQUIRES IMMEDIATE EMERGENCY ATTENTION. Patient Education Sinusitis SAP DATA ARCHITECT: Sinusitis is inflammation or infection of your sinuses. It is most often caused by a virus. Acute sinusitis may last up to 12 weeks. Chronic sinusitis lasts longer than 12 weeks. Recurrent sinusitis means you have 4 or more times in 1 year. Common symptoms include the following: ?? Fever ?? Pain, pressure, redness, or swelling around the forehead, cheeks, or eyes ?? Thick yellow or green discharge from your nose ?? Tenderness when you touch your face over your sinuses ?? Dry cough that happens mostly at night or when you lie down ?? Headache and face pain that is worse when you lean forward ?? Tooth pain, or pain when you chew Seek care immediately if: ?? Your eye and eyelid are red, swollen, and painful. ?? You cannot open your eye. ?? You have vision changes, such as double vision. ?? Your eyeball bulges out or you cannot move your eye. ?? You are more sleepy than normal, or you notice changes in your ability to think, move, or talk. ?? You have a stiff neck, a fever, or a bad headache. ?? You have swelling of your forehead or scalp. Contact your healthcare provider if: ?? Your symptoms do not improve after 3 days. ?? Your symptoms do not go away after 10 days. ?? You have nausea and are vomiting. ?? Your nose is bleeding. ?? You have questions or concerns about your condition or care. Treatment for sinusitis: Your symptoms may go away on their own. Your healthcare provider may recommend watchful waiting for up to 10 days before starting antibiotics. You may need any of the following: ?? Acetaminophen decreases pain and fever. It is available without a doctor's order. Ask how much to take and how often to take it. Follow directions. Read the labels of all other medicines you are using to see if they also contain acetaminophen, or ask your doctor or pharmacist. Acetaminophen can cause liver damage if not taken correctly. Do not use more than 4 grams (4,000 milligrams) total of acetaminophen in one day. ?? NSAIDs , such as ibuprofen, help decrease swelling, pain, and fever. This medicine is available with or without a doctor's order. NSAIDs can cause stomach bleeding or kidney problems in certain people. If you take blood thinner medicine, always ask your healthcare provider if NSAIDs are safe foryou. Always read the medicine label and follow directions. ?? Nasal steroid sprays may help decrease inflammation in your nose and sinuses. ?? Decongestants help reduce swelling and drain mucus in the nose and sinuses. They may help you breathe easier. ?? Antihistamines help dry mucus in the nose and relieve sneezing. ?? Antibiotics help treat or prevent a bacterial infection. ?? Take your medicine as directed. Contact your healthcare provider if you think your medicine is not helping or if you have side effects. Tell him or her if you are allergic to any medicine. Keep a list of the medicines, vitamins, and herbs you take. Include the amounts, and when and why you take them. Bring the list or the pill bottles to follow-up visits. Carry your medicine list with you in case of an emergency. Self-care: ?? Rinse your sinuses. Use a sinus rinse device to rinse your nasal passages with a saline (salt water) solution or distilled water. Do not use tap water. This will help thin the mucus in your nose and rinse away pollen and dirt. It will also help reduce swelling so you can breathe normally. Ask your healthcare provider how often to do this. ?? Breathe in steam. Heat a bowl of water until you see steam. Lean over the bowl and make a tent over your head with a large towel. Breathe deeply for about 20 minutes. Be careful not to get too close to the steam or burn yourself. Do this 3 times a day. You can also breathe deeply when you take ahot shower. ?? Sleep with your head elevated. Place an extra pillow under your head before you go to sleep to help your sinuses drain. ?? Drink liquids as directed. Ask your healthcare provider how much liquid to drink each day and which liquids are best for you. Liquids will thin the mucus in your nose and help it drain. Avoid drinks that contain alcohol or caffeine. ?? Do not smoke, and avoid secondhand smoke. Nicotine and other chemicals in cigarettes and cigars can make your symptoms worse. Ask your healthcare provider for information if you currently smoke and need help to quit. E-cigarettes or smokeless tobacco still contain nicotine. Talk to your healthcare provider before you use these products. Prevent the spread of germs that cause sinusitis: Wash your hands often with soap and water. Wash your hands after you use the bathroom, change a child's diaper, or sneeze. Wash your hands before youprepare or eat food. Follow up with your healthcare provider as directed: You may be referred to an ear, nose, and throat specialist. Write down your questions so you remember to ask them during your visits. ?? 2017 [employer] Information is for End User's use only and may not be sold, redistributed or otherwise used for commercial purposes. All illustrations and images included in CareNotes?? are the copyrighted property of [employer], [employer]. or [employer]. The above information is an pharmacy aide only. It is not intended as medical advice for individual conditions or treatments. Talk to your doctor, nurse or pharmacist before following any medical regimen to see if it is safe and effective for you. H STOCK SORTER H STOCK SORTER documented in this encounter Ordered Prescriptions Prescription Sig Dispense Quantity Refills Last Filled Start Date End Date amoxicillin-clavul anate (Augmentin) 875-125 mg per tabletIndications: Acute non-recurrent frontal sinusitis Take 1 tablet by mouth 2 (two) times a day for 7 days 14 tablet 04/26/2021 05/03/2021 documented in this encounter Progress Notes * Alison Adkins NP - 04/26/2021 3:00 PM CST Images from the original note were not included. Patient ID: Kathryn Mathis is a 51 y.o. female followed by Monty Umana, DO Chief Complaint Patient presents with ??? Congestion x 2 days, low grade fever, earache, no taste, Patient presents to the clinic with congestion, low grade fevers, earache, and no taste for 2 weeksbut worsening over the past 2 days. She is taking ibuprofen for her symptoms. She is fully vaccinated against covid. Denies fevers greater than 100, shortness of breath, wheezing, vomiting, and diarrhea. Review of Systems Constitutional: Positive for fever (low grade). Negative for chills. HENT: Positive for congestion and ear pain. Negative for postnasal drip, rhinorrhea and sore throat. Respiratory: Negative for cough, chest tightness, shortness of breath and wheezing. Cardiovascular: Negative for chest pain. Neurological: Negative for headaches. No taste Vitals: 04/26/21 1514 BP: 122/90 BP Location: Left arm Patient Position: Sitting Pulse: 60 Resp: 16 Temp: 36.8 ??C (98.3 ??F) SpO2: 99% Weight: 68.9 kg (152 lb) Height: 167.6 cm (5' 6 ) Recent Results (from the past 24 hour(s)) POC Influenza A/B, COVID-19 antigen Collection Time: 04/26/21 3:50 PM Result Value Ref Range Inflenza A Ag, POC Negative Influenza B Ag, POC Negative COVID-19 Ag POC Presumptive Negative Presumptive Negative, Invalid Physical Exam Vitals reviewed. Constitutional: Appearance: She is well-developed. HENT: Right Ear: Ear canal and external ear normal. A middle ear effusion is present. Tympanic membrane is not injected, erythematous or bulging. Left Ear: Ear canal and external ear normal. A middle ear effusion is present. Tympanic membrane isnot injected, erythematous or bulging. Nose: Congestion present. Right Sinus: Frontal sinus tenderness present. No maxillary sinus tenderness. Left Sinus: Frontal sinus tenderness present. No maxillary sinus tenderness. Mouth/Throat: Lips: Schlater. Mouth: Mucous membranes are moist. Pharynx: Uvula midline. No pharyngeal swelling, oropharyngeal exudate or posterior oropharyngeal erythema. Tonsils: No tonsillar exudate. Eyes: Conjunctiva/sclera: Conjunctivae normal. Cardiovascular: Rate and Rhythm: Normal rate and regular rhythm. Pulmonary: Effort: Pulmonary effort is normal. No respiratory distress. Breath sounds: Normal breath sounds. No decreased breath sounds, wheezing or rhonchi. Musculoskeletal: General: Normal range of motion. Lymphadenopathy: Cervical: No cervical adenopathy. Skin: General: Skin is warm and dry. Neurological: Mental Status: She is alert and oriented to person, place, and time. Diagnoses and all orders for this visit: Acute non-recurrent frontal sinusitis (Primary) - POC Influenza A/B, COVID-19 antigen - amoxicillin-clavulanate (Augmentin) 875-125 mg per tablet; Take 1 tablet by mouth 2 (two) times aday for 7 days Orders Placed This Encounter Procedures ??? POC Influenza A/B, COVID-19 antigen Order Specific Question: Is the Patient experiencing symptoms consistent with COVID? Answer: Yes Order Specific Question: Date of Symptom Onset Answer: 04/23/2021 Order Specific Question: Is the patient hospitalized? Answer: No Order Specific Question: Is the patient admitted to an ICU? Answer: No Order Specific Question: Is this the first COVID-19 test for this patient? Answer: No Order Specific Question: Does the patient currently work in a healthcare facility with direct patient contact? Answer: No Order Specific Question: Is the patient a resident of a congregate care or living setting? Answer: No Order Specific Question: ? Answer: No Assessment/Plan Finish the entire antibiotic prescription. Take this with food. Eat yogurt or take probiotic daily while on antibiotics. Symptomatic treatments include: -Over the counter antihistamine such as loratadine (Claritin) or cetirizine (Zyrtec) to reduce secretions. The D formula includes pseudoephedrine and can be helpful as a decongestant but SHOULD NOTBE USED IF YOU HAVE A HISTORY OF HIGH BLOOD PRESSURE. -Coricidin HBP may be taken for congestion if you have a history of high blood pressure. -Tessalon, Dextromethorphan (Robitussin) or Delsym for cough -Guafenesin (Mucinex) to thin secretions -Acetaminophen (Tylenol), ibuprofen (Motrin, Advil), or Aleve (naproxen) for pain or fever. -The use of hypertonic saline to irrigate nasal passageways can be helpful. Over the counter systems include Neti Pot and Nasopure. Use with distilled water. -Salt water gargles and throat lozenges can be helpful for sore throat. -To prevent spreading the illness to others cover your sneeze and cough into your arm and not your hand, don't allow others to eat or drink with the same utensils or glass, and use hand sales and production manager before touching people or common surfaces. -Apply warm packs to face to facilitate sinus drainage. - Use cool mist humidifier in bedroom at night. -Increase fluid consumption and Rest. -Follow up with your PCP in 1 week or sooner if symptoms worsen or are not improving as planned. -If you experience any shortness of breath, chest pain, or high fever >101, go to the Emergency Room. GO TO EMERGENCY ROOM OR CALL 911 WITH ANY OF THE FOLLOWING SYMPTOMS: HIGH, PERSISTENT FEVER >101; SWELLING, INFLAMMATION, OR REDNESS AROUND EYES, ABNORMAL EYE MOVEMENTS, CHEST PAIN, SHORTNESS OF BREATH, VISION CHANGES (DOUBLE VISION OR IMPAIRED VISION); SEVERE HEADACHE; ALTERED MENTAL STATUS. THESE ARE SIGNS OF A RARE, BUT SERIOUS COMPLICATION AND REQUIRES IMMEDIATE EMERGENCY ATTENTION. Lungs CTA, O2 Saturation @99%/RA, low suspicion for pneumonia at this time. Will recommend supportive care for symptoms with f/u precautions including signs/symptoms warranting ER evaluation. ??? Discussed home self-care, follow up needs, and signs and symptoms that warrant immediate medical attention/ER evaluation including worsening fever, increased shortness of breath, severe N/V/D, orany other worrisome symptoms ??? Reviewed isolation/quarantine protocols ??? Discussed symptomatic relief of symptoms ??? Advised to rest and increase oral fluid intake ??? Advised to stay out of work and work release given explaining when patient can return to work Patient Education Sinusitis SAP DATA ARCHITECT: Sinusitis is inflammation or infection of your sinuses. It is most often caused by a virus. Acute sinusitis may last up to 12 weeks. Chronic sinusitis lasts longer than 12 weeks. Recurrent sinusitis means you have 4 or more times in 1 year. Common symptoms include the following: ?? Fever ?? Pain, pressure, redness, or swelling around the forehead, cheeks, or eyes ?? Thick yellow or green discharge from your nose ?? Tenderness when you touch your face over your sinuses ?? Dry cough that happens mostly at night or when you lie down ?? Headache and face pain that is worse when you lean forward ?? Tooth pain, or pain when you chew Seek care immediately if: ?? Your eye and eyelid are red, swollen, and painful. ?? You cannot open your eye. ?? You have vision changes, such as double vision. ?? Your eyeball bulges out or you cannot move your eye. ?? You are more sleepy than normal, or you notice changes in your ability to think, move, or talk. ?? You have a stiff neck, a fever, or a bad headache. ?? You have swelling of your forehead or scalp. Contact your healthcare provider if: ?? Your symptoms do not improve after 3 days. ?? Your symptoms do not go away after 10 days. ?? You have nausea and are vomiting. ?? Your nose is bleeding. ?? You have questions or concerns about your condition or care. Treatment for sinusitis: Your symptoms may go away on their own. Your healthcare provider may recommend watchful waiting for up to 10 days before starting antibiotics. You may need any of the following: ?? Acetaminophen decreases pain and fever. It is available without a doctor's order. Ask how much to take and how often to take it. Follow directions. Read the labels of all other medicines you are using to see if they also contain acetaminophen, or ask your doctor or pharmacist. Acetaminophen can cause liver damage if not taken correctly. Do not use more than 4 grams (4,000 milligrams) total of acetaminophen in one day. ?? NSAIDs , such as ibuprofen, help decrease swelling, pain, and fever. This medicine is available with or without a doctor's order. NSAIDs can cause stomach bleeding or kidney problems in certain people. If you take blood thinner medicine, always ask your healthcare provider if NSAIDs are safe foryou. Always read the medicine label and follow directions. ?? Nasal steroid sprays may help decrease inflammation in your nose and sinuses. ?? Decongestants help reduce swelling and drain mucus in the nose and sinuses. They may help you breathe easier. ?? Antihistamines help dry mucus in the nose and relieve sneezing. ?? Antibiotics help treat or prevent a bacterial infection. ?? Take your medicine as directed. Contact your healthcare provider if you think your medicine is not helping or if you have side effects. Tell him or her if you are allergic to any medicine. Keep a list of the medicines, vitamins, and herbs you take. Include the amounts, and when and why you take them. Bring the list or the pill bottles to follow-up visits. Carry your medicine list with you in case of an emergency. Self-care: ?? Rinse your sinuses. Use a sinus rinse device to rinse your nasal passages with a saline (salt water) solution or distilled water. Do not use tap water. This will help thin the mucus in your nose and rinse away pollen and dirt. It will also help reduce swelling so you can breathe normally. Ask your healthcare provider how often to do this. ?? Breathe in steam. Heat a bowl of water until you see steam. Lean over the bowl and make a tent over your head with a large towel. Breathe deeply for about 20 minutes. Be careful not to get too close to the steam or burn yourself. Do this 3 times a day. You can also breathe deeply when you take ahot shower. ?? Sleep with your head elevated. Place an extra pillow under your head before you go to sleep to help your sinuses drain. ?? Drink liquids as directed. Ask your healthcare provider how much liquid to drink each day and which liquids are best for you. Liquids will thin the mucus in your nose and help it drain. Avoid drinks that contain alcohol or caffeine. ?? Do not smoke, and avoid secondhand smoke. Nicotine and other chemicals in cigarettes and cigars can make your symptoms worse. Ask your healthcare provider for information if you currently smoke and need help to quit. E-cigarettes or smokeless tobacco still contain nicotine. Talk to your healthcare provider before you use these products. Prevent the spread of germs that cause sinusitis: Wash your hands often with soap and water. Wash your hands after you use the bathroom, change a child's diaper, or sneeze. Wash your hands before youprepare or eat food. Follow up with your healthcare provider as directed: You may be referred to an ear, nose, and throat specialist. Write down your questions so you remember to ask them during your visits. ?? 2017 [employer] Information is for End User's use only and may not be sold, redistributed or otherwise used for commercial purposes. All illustrations and images included in CareNotes?? are the copyrighted property of [employer] or [employer]. The above information is an pharmacy aide only. It is not intended as medical advice for individual conditions or treatments. Talk to your doctor, nurse or pharmacist before following any medical regimen to see if it is safe and effective for you. Alison Adkins NP H STOCK SORTER documented in this encounter Plan of Treatment Not on file documented as of this encounter Procedures Procedure Name Priority Date/Time Associated Diagnosis Comments POC INFLUENZA A/B, COVID-19 ANTIGEN Routine 04/26/2021 3:50 PM CLOTH STOCK SORTER Acute non-recurrent frontal sinusitis documented in this encounter Results * POC Influenza A/B, COVID-19 antigen (04/26/2021 3:50 PM CLOTH STOCK SORTER) Influenza A Ag, POC Negative [facility] [place] [facility] Influenza B Ag, POC Negative [facility] [place] COVID-19 Ag POC Presumptive Negative Presumptive Negative, Invalid [facility] 04/26/2021 3:50 PM CLOTH STOCK SORTER Alison Adkins NP POINT OF CARE TEST ORDERABLES Final Result Performing Organization Address City/State/[facility] Co de Phone Number [facility] [address] [place] [address] documented in this encounter Visit Diagnoses Diagnosis Acute non-recurrent frontal sinusitis- Primary documented in this encounter Historical Medications * This list may reflect changes made after this encounter. clonazePAM (KlonoPIN) 0.5 mg tablet Take 1 tablet (0.5 mg total) by mouth 2 (two) times a day sertraline (ZOLOFT) 100 mg tablet Take 1 tablet (100 mg total) by mouth daily added in this encounter Additional Health Concerns Infection Onset Date Last Indicated Resolved Time COVID: Suspected 04/26/2021 04/26/2021 04/26/2021 3:52 PM CLOTH STOCK SORTER documented as of this encounter Care Teams Edge Inker Uppers Relationship Specialty Start Date End Date Monty Umana DO PCP - General Internal Medicine 04/26/21 06/04/23 Monty Umana DO 04/26/21 documented as of this encounter
--- OUTSIDE RECORDS SUMMARY | 2024-05-17 23:20 | XMS_ITS | Encounter Summary ---
Author Organization [facility] Healthcare Address [address] [place] [address] Care Team Providers Care Superintendent Drilling And Production Name Role Phone Monty Umana DO Primary Care Provider [phone] Monty Umana DO Unavailable [phone] Encounter Details Date Type Department Care Team (Late st Contact Info) Description 05/31/2021 1:55 PM [facility] [address] [address] Acute nasopharyngitis Social History Tobacco Use Types Packs/Day Years Used Date Smoking Tobacco: Every Day Comments Unknown Sex and Gender Information Value Date Recorded Sex Assigned at Not on file Legal Sex Female 12:41 PM [facility] [employer] Gender Identity Not on file Sexual Orientation Not on file documented as of this encounter Miscellaneous Notes * Result Encounter Note - Alison Adkins NP - 06/01/2021 7:43 AM CST Please notify patient of negative COVID-19 test. If patient was symptomatic, patient should continue to self isolate until at least 5 days have passed since symptom onset and they have been fever free without the use of fever reducing medications for at least 24 hours. [facility] [employer] documented in this encounter Plan of Treatment Not on file documented as of this encounter Procedures Procedure Name Priority Date/Time Associated Diagnosis Comments COVID-19 CORONAVIRUS RNA Routine 05/31/2021 8:58 AM [facility] [employer] Acute nasopharyngitis documented in this encounter Results * COVID-19 Coronavirus RNA Nasopharyngeal (05/31/2021 8:58 AM [facility]) COVID-19 RNA Not Detected DIONICIO SCHILLING Comment: Interpretive Data Synonyms for this test include: PCR and NAAT . ??Testing performed by the [facility]. The 2018-Novel Coronavirus Assay (COVID-19) Real Time RT-PCR assay is for in vitro diagnostic use under FDA emergency use authorization only. A negative RT-PCR result does not preclude infection with COVID-19 and should not be used as the sole basis for treatment or other patient management decisions. ??Additional sample types have been validated according to CLIA regulations. ?? Current Interpretive Data was last revised on June 23, 2020. Testing performed by: [facility], [address] [place] [address], [id number] First COVID-19 test? No CERNER CH Comment:Testing performed by : [facility], [address] [place] [address], [id number] Employeed in healthcare? No CERNER CH Comment:Testing performed by : [facility], [address] [place] [address], [id number] status? No CERNER CH Comment:Testing performed by : [facility], [address] [place] [address], [id number] Group care resident? No CERNER CH Comment:Testing performed by : [facility], [address] [place] [address], [id number] Hospitalized? No CERNER CH Comment:Testing performed by : [facility], [address] [place] [address], [id number] Is patient in ICU? No CERNER CH Comment:Testing performed by : [facility], [address] [place] [address], [id number] Symptomatic as defined by CDC? Yes CERNER CH Comment:Testing performed by : [facility], [address] [place] [address], [id number] Nasopharyngeal 05/31/2021 8: 58 AM [facility] 05/31/2021 6:29 PM [employer] Narrative DIONICIO - 06/01/2021 5:20 AM [employer] What is the reason for testing?->Symptomatic patients within 5 days of ??symptom onset (Batched) Date of Symptom Onset->05/31/21 us Reji Johnson NP LAB MICROBIOLOGY - [facility] Final Result DIONICIO [id number] [address] [place] [address] documented in this encounter Visit Diagnoses Diagnosis Acute nasopharyngitis Acute nasopharyngitis (common cold) documented in this encounter Additional Health Concerns Infection Onset Date Last Indicated Resolved Time COVID: Suspected 05/31/2021 05/31/2021 06/01/2021 5:21 AM [employer] documented as of this encounter Care Teams Superintendent Drilling And Production Relationship Specialty Start Date End Date Monty Umana DO PCP - General Internal Medicine 04/26/21 06/04/23 Monty Umana DO 04/26/21 documented as of this encounter
--- OUTSIDE RECORDS SUMMARY | 2024-05-17 23:20 | XMS_ITS | Encounter Summary ---
Author Organization [facility] Address [address] [facility] [address] [place] [id number] Care Team Providers Care Side Stitching Machine Operator Name Role Phone Monty Umana DO Primary Care Provider [phone] Monty Umana DO Unavailable [phone] Reason for Visit * Reason Comments COVID-19 EVALUATION woke up today with r unny nose, sore throat/neck pain, cough, body aches Encounter Details Date Type Department Care Team (Latest Contact Info) Description 05/31/2021 8:30 AM SOLUTION ANALYST Office Visit [facility] Out[facility] [address] [address] Reji Johnson NP [address] [place] [address] [address] [place] [address] Acute nasopharyngitis (Primary Dx); Close exposure to COVID-19 virus; Elevated blood pressure reading without diagnosis of hypertension Social History Tobacco Use Types Packs/Day Years Used Date Smoking Tobacco: Every Day Comments Unknown Sex and Gender Information Value Date Recorded Sex Assigned at Not on file Legal Sex Female 12:41 PM SOLUTION ANALYST Gender Identity Not on file Sexual Orientation Not on file documented as of this encounter Last Filed Vital Signs Vital Sign Reading Time Taken Comments Blood Pressure 160/100 05/31/2021 9:03 AM SOLUTION ANALYST Pulse 80 05/31/2021 8:24 AM SOLUTION ANALYST Temperature 36.5 ??C (97.7 ??F) 05/31/2021 8:24 AM CS T Respiratory Rate 16 05/31/2021 8:24 AM SOLUTION ANALYST Oxygen Saturation 99% 05/31/2021 8:24 AM SOLUTION ANALYST Inhaled Oxygen Concentration - - Weight 68 kg (150 lb) 05/31/2021 8:24 AM SOLUTION ANALYST Height 167.6 cm (5' 6 ) 05/31/2021 8:24 AM SOLUTION ANALYST Body Mass Index 24.21 05/31/2021 8:24 AM SOLUTION ANALYST documented in this encounter Patient Instructions * Patient Instructions* Reji Johnson NP - 05/31/2021 8:30 AM SOLUTION ANALYST Results for orders placed or performed in visit on 05/31/21 POC Influenza A/B, COVID-19 antigen Result Value Ref Range Inflenza A Ag, POC Negative Influenza B Ag, POC Negative COVID-19 Ag POC Presumptive Negative Presumptive Negative, Invalid While waiting for your COVID-19 test result or if your COVID-19 test is positive: ISOLATE: Stay home except to get medical care! Separate yourself from other people and pets in [facility]: ??? Do not go to work, school, or public areas, such as stores or social gatherings. ??? Do not use public transportation. ??? If available, stay in a separate bedroom and use a separate bathroom. ??? Ask others to care for your pets. (If possible) ??? Wear a facemask when around other people or pets. ??? Cover your mouth and nose with a tissue when you cough or sneeze. If a tissue is not available,cough or sneeze into your upper sleeve (not your hands). ??? Throw tissues away in trash-can that has a bag in it. Empty your trash daily. ??? Always wash your hands after you throw away the tissue or garbage. If you test Positive for COVID-19 Given what we currently know about COVID-19 and the Omicron variant, CDC is shortening the recommended time for isolation from 10 days for people with COVID-19 to 5 days, if asymptomatic, followed by5 days of wearing a mask when around others. The change is motivated by science demonstrating that the majority of SARS-CoV-2 transmission occurs early in the course of illness, generally in the 1-2 days prior to onset of symptoms and the 2-3 days after. Therefore, people who test positive should isolate for 5 days and, if asymptomatic at that time, they may leave isolation if they can continue to mask for 5 days to minimize the risk of infecting others. Quarantine for those exposed to COVID-19 Additionally, [facility] is updating the recommended quarantine period for those exposed to COVID-19. For people who are unvaccinated or are more than six months out from their second mRNA dose (or more than 2 months after the J&J vaccine) and not yet boosted, CDC now recommends quarantine for 5 days followed by strict mask use for an additional 5 days. Alternatively, if a 5-day quarantine is not feasible, it is imperative that an exposed person wear a well-fitting mask at all times when around others for 10 days after exposure. Individuals who have received their booster shot do not need to quarantine following an exposure, but should wear a mask for 10 days after the exposure. For all those exposed, best practice would also include a test for SARS-CoV-2 at day 5 after exposure. If symptomsoccur, individuals should immediately quarantine until a negative test confirms symptoms are not attributable to COVID-19. Isolation relates to behavior after a confirmed infection. Isolation for 5 days followed by wearinga well-fitting mask will minimize the risk of spreading the virus to others. Quarantine refers to the time following exposure to the virus or close contact with someone known to have COVID-19. Both updates come as the Omicron variant continues to spread throughout the [place] and reflects the current science on when and for how long a person is maximally infectious. If You Were Exposed to Someone with COVID-19 (Quarantine) If you: Have been boosted OR Completed the primary series of Pfizer or Moderna vaccine within the last 6 months OR Completed the primary series of J&J vaccine within the last 2 months Wear a mask around others for 10 days. Test on day 5, if possible. If you develop symptoms get a test and stay home. If you: Completed the primary series of Pfizer or Moderna vaccine over 6 months ago and are not boosted OR Completed the primary series of J&J over 2 months ago and are not boosted OR Are unvaccinated Stay home for 5 days. After that continue to wear a mask around others for 5 additional days. If you can???t quarantine you must wear a mask for 10 days. Test on day 5 if possible. If you develop symptoms get a test and stay home If You Test Positive for COVID-19 (Isolate) Everyone, regardless of vaccination status. Stay home for 5 days. If you have no symptoms or your symptoms are resolving after 5 days, you can leave your house. Continue to wear a mask around others for 5 additional days. If you have a fever, continue to stay home until your fever resolves. Self-care: ??? Rest as much as possible. Slowly start to do more each day. ??? Take the medicines recommended by your doctor for fever, body aches, cough, or headaches. (Tylenol or Ibuprofen for aches/pains/fever as needed) (Antihistamines like Claritin or Benadryl as needed for drainage) (Delsym and cough drops/throat lozenges as needed for cough) ??? Drink more liquids as directed to help thin and loosen mucus so it is easier to cough up. Liquids such as water, fruit juice, and broth also help keep you hydrated. ??? Soothe a sore throat by gargling with warm salt water. Make salt water by dissolving ?? teaspoon salt in 1 cup warm water (8 ounces). Older children and adults can also use throat lozenges, ice chips, or sore throat spray. ??? Use a humidifier or vaporizer to increase air moisture in your home. This may make it easier tobreathe and help decrease coughing. ??? Use saline nasal drops as directed to relieve congestion. ??? Apply petroleum-based jelly around the outside of nostrils to decrease irritation from blowing your nose. ??? DO NOT smoke or vape. Nicotine and other chemicals in cigarettes and cigars can make your symptoms worse. Monitor your symptoms: ??? Seek medical attention right away if your symptoms get worse, such as if you are having difficulty breathing, shortness of breath, new confusion or inability to arouse, or bluish lips or face. ??? If you have a pulse ox monitor at home, monitor your oxygen saturations with this device. If you find your Oxygen Saturation is falling 92% or below please notify your PCP right away or seek medical attention. Or if you experience fever uncontrolled with antipyretics, shortness of breath, chestdiscomfort, uncontrolled n/v/d ??? If you have a medical emergency, call 911 and notify the EMS personnel that you have or are being evaluated for COVID-19. Put on a facemask before emergency medical services arrive -briefly discussed monoclonal antibody therapy, if you meet criteria, call your PCP for more information TION ANALYST documented in this encounter Progress Notes * Reji Johnson NP - 05/31/2021 8:30 AM CST Images from the original note were not included. Subjective/Objective Patient ID: Kathryn Mathis is a 51 y.o. female. Chief Complaint COVID-19 EVALUATION (woke up today with runny nose, sore throat/neck pain, cough, body aches) pt is vaccinated for covid J&J Pt's two children are sick with covid currently. URI This is a new problem. The current episode started today (approx. 2 hours ago). The problem has been unchanged. There has been no fever. Associated symptoms include coughing and rhinorrhea. Pertinentnegatives include no abdominal pain, chest pain, congestion, diarrhea, ear pain, headaches, nausea,neck pain, rash, shortness of breath, sinus pain, sneezing, sore throat (pt states throat is not sore, just achy), vomiting or wheezing. She has tried nothing for the symptoms. Review of Systems Constitutional: Negative for appetite change, chills, diaphoresis, fatigue and fever. HENT: Positive for rhinorrhea. Negative for congestion, ear discharge, ear pain, postnasal drip, sinus pressure, sinus pain, sneezing and sore throat (pt states throat is not sore, just achy). Respiratory: Positive for cough. Negative for chest tightness, shortness of breath and wheezing. Cardiovascular: Negative for chest pain. Gastrointestinal: Negative for abdominal pain, diarrhea, nausea and vomiting. Musculoskeletal: Positive for myalgias. Negative for neck pain and neck stiffness. Skin: Negative for rash. Neurological: Negative for dizziness and headaches. Hematological: Negative for adenopathy. Physical Exam Vitals and nursing note reviewed. Constitutional: General: She is awake. She is not in acute distress. Appearance: Normal appearance. HENT: Head: Normocephalic and atraumatic. Right Ear: Tympanic membrane and ear canal normal. Left Ear: Tympanic membrane and ear canal normal. Nose: Congestion and rhinorrhea present. Right Sinus: No maxillary sinus tenderness or frontal sinus tenderness. Left Sinus: No maxillary sinus tenderness or frontal sinus tenderness. Mouth/Throat: Lips: Deming. Mouth: Mucous membranes are moist. Tongue: Tongue does not deviate from midline. Pharynx: Uvula midline. Posterior oropharyngeal erythema present. No pharyngeal swelling, oropharyngeal exudate or uvula swelling. Tonsils: No tonsillar exudate or tonsillar abscesses. Eyes: General: Lids are normal. Pupils: Pupils are equal, round, and reactive to light. Cardiovascular: Rate and Rhythm: Normal rate and regular rhythm. Pulses: Normal pulses. Heart sounds: Normal heart sounds. Pulmonary: Effort: Pulmonary effort is normal. No respiratory distress. Breath sounds: Normal breath sounds. No decreased breath sounds, wheezing, rhonchi or rales. Comments: No cough noted on exam Musculoskeletal: Cervical back: Full passive range of motion without pain, normal range of motion and neck supple. Lymphadenopathy: Cervical: No cervical adenopathy. Skin: General: Skin is warm and dry. Neurological: Mental Status: She is alert and oriented to person, place, and time. Gait: Gait normal. Psychiatric: Behavior: Behavior is cooperative. Vitals: 05/31/21 0824 05/31/21 0903 BP: 149/91 160/100 BP Location: Right arm Patient Position: Sitting Pulse: 80 Resp: 16 Temp: 36.5 ??C (97.7 ??F) SpO2: 99% Weight: 68 kg (150 lb) Height: 167.6 cm (5' 6 ) No exam data present Past Medical History: Diagnosis Date ??? Anxiety ??? Depression Social History Socioeconomic History ??? Marital status: Tobacco Use ??? Smoking status: Current Every Day Smoker Assessment/Plan Diagnoses and all orders for this visit: Acute nasopharyngitis (Primary) - POC Influenza A/B, COVID-19 antigen - COVID-19 Coronavirus RNA Nasopharyngeal; Future Close exposure to COVID-19 virus Elevated blood pressure reading without diagnosis of hypertension follow up with PCP Recent Results (from the past 4 hour(s)) POC Influenza A/B, COVID-19 antigen Collection Time: 05/31/21 8:53 AM Result Value Ref Range Inflenza A Ag, POC Negative Influenza B Ag, POC Negative COVID-19 Ag POC Presumptive Negative Presumptive Negative, Invalid Patient Education: If symptoms persist past 10-14 days or worsen at anytime follow up with [facility]. While waiting for your COVID-19 test result or if your COVID-19 test is positive: ISOLATE: Stay home except to get medical care! Separate yourself from other people and pets in [facility]: ??? Do not go to work, school, or public areas, such as stores or social gatherings. ??? Do not use public transportation. ??? If available, stay in a separate bedroom and use a separate bathroom. ??? Ask others to care for your pets. (If possible) ??? Wear a facemask when around other people or pets. ??? Cover your mouth and nose with a tissue when you cough or sneeze. If a tissue is not available,cough or sneeze into your upper sleeve (not your hands). ??? Throw tissues away in trash-can that has a bag in it. Empty your trash daily. ??? Always wash your hands after you throw away the tissue or garbage. If you test Positive for COVID-19 Given what we currently know about COVID-19 and the Omicron variant, [facility] is shortening the recommended time for isolation from 10 days for people with COVID-19 to 5 days, if asymptomatic, followed by5 days of wearing a mask when around others. The change is motivated by science demonstrating that the majority of SARS-CoV-2 transmission occurs early in the course of illness, generally in the 1-2 days prior to onset of symptoms and the 2-3 days after. Therefore, people who test positive should isolate for 5 days and, if asymptomatic at that time, they may leave isolation if they can continue to mask for 5 days to minimize the risk of infecting others. Quarantine for those exposed to COVID-19 Additionally, [facility] is updating the recommended quarantine period for those exposed to COVID-19. For people who are unvaccinated or are more than six months out from their second mRNA dose (or more than 2 months after the J&J vaccine) and not yet boosted, CDC now recommends quarantine for 5 days followed by strict mask use for an additional 5 days. Alternatively, if a 5-day quarantine is not feasible, it is imperative that an exposed person wear a well-fitting mask at all times when around others for 10 days after exposure. Individuals who have received their booster shot do not need to quarantine following an exposure, but should wear a mask for 10 days after the exposure. For all those exposed, best practice would also include a test for SARS-CoV-2 at day 5 after exposure. If symptomsoccur, individuals should immediately quarantine until a negative test confirms symptoms are not attributable to COVID-19. Isolation relates to behavior after a confirmed infection. Isolation for 5 days followed by wearinga well-fitting mask will minimize the risk of spreading the virus to others. Quarantine refers to the time following exposure to the virus or close contact with someone known to have COVID-19. Both updates come as the Omicron variant continues to spread throughout the [place] and reflects the current science on when and for how long a person is maximally infectious. If You Were Exposed to Someone with COVID-19 (Quarantine) If you: Have been boosted OR Completed the primary series of Pfizer or Moderna vaccine within the last 6 months OR Completed the primary series of J&J vaccine within the last 2 months Wear a mask around others for 10 days. Test on day 5, if possible. If you develop symptoms get a test and stay home. If you: Completed the primary series of Pfizer or Moderna vaccine over 6 months ago and are not boosted OR Completed the primary series of J&J over 2 months ago and are not boosted OR Are unvaccinated Stay home for 5 days. After that continue to wear a mask around others for 5 additional days. If you can???t quarantine you must wear a mask for 10 days. Test on day 5 if possible. If you develop symptoms get a test and stay home If You Test Positive for COVID-19 (Isolate) Everyone, regardless of vaccination status. Stay home for 5 days. If you have no symptoms or your symptoms are resolving after 5 days, you can leave your house. Continue to wear a mask around others for 5 additional days. If you have a fever, continue to stay home until your fever resolves. Self-care: ??? Rest as much as possible. Slowly start to do more each day. ??? Take the medicines recommended by your doctor for fever, body aches, cough, or headaches. (Tylenol or Ibuprofen for aches/pains/fever as needed) (Antihistamines like Claritin or Benadryl as needed for drainage) (Delsym and cough drops/throat lozenges as needed for cough) ??? Drink more liquids as directed to help thin and loosen mucus so it is easier to cough up. Liquids such as water, fruit juice, and broth also help keep you hydrated. ??? Soothe a sore throat by gargling with warm salt water. Make salt water by dissolving ?? teaspoon salt in 1 cup warm water (8 ounces). Older children and adults can also use throat lozenges, ice chips, or sore throat spray. ??? Use a humidifier or vaporizer to increase air moisture in your home. This may make it easier tobreathe and help decrease coughing. ??? Use saline nasal drops as directed to relieve congestion. ??? Apply petroleum-based jelly around the outside of nostrils to decrease irritation from blowing your nose. ??? DO NOT smoke or vape. Nicotine and other chemicals in cigarettes and cigars can make your symptoms worse. Monitor your symptoms: ??? Seek medical attention right away if your symptoms get worse, such as if you are having difficulty breathing, shortness of breath, new confusion or inability to arouse, or bluish lips or face. ??? If you have a pulse ox monitor at home, monitor your oxygen saturations with this device. If you find your Oxygen Saturation is falling 92% or below please notify your PCP right away or seek medical attention. Or if you experience fever uncontrolled with antipyretics, shortness of breath, chestdiscomfort, uncontrolled n/v/d ??? If you have a medical emergency, call 911 and notify the EMS personnel that you have or are being evaluated for COVID-19. Put on a facemask before emergency medical services arrive -briefly discussed monoclonal antibody therapy, if you meet criteria, call your PCP for more information Disposition ??? Treatment plan including expectations, follow up, and return precautions discussed with patient/parent, verbalizes understanding. ??? Medication dosage, use, and potential adverse reactions discussed with patient/parent. ??? Advised to follow up with PCP if symptoms do not resolve as expected or sooner if condition worsens. ??? Signs/symptoms warranting ER evaluation reviewed. ??? Patient and/or guardian was given an opportunity to ask questions, questions answered. Reji Johnson NP TION ANALYST documented in this encounter Plan of Treatment Not on file documented as of this encounter Procedures Procedure Name Priority Date/Time Associated Diagnosis Comments POC INFLUENZA A/B, COVID-19 ANTIGEN Routine 05/31/2021 8:53 AM SOLUTION ANALYST Acute nasopharyngitis documented in this encounter Results * COVID-19 Coronavirus RNA Nasopharyngeal (05/31/2021 8:58 AM SOLUTION ANALYST) COVID-19 RNA Not Detected DIONICIO SCHILLING Comment: Interpretive Data Synonyms for this test include: PCR and NAAT . ??Testing performed by the [facility] Molecular Infectious Disease [facility]. The 2018-Novel Coronavirus [...] on June 23, 2020. Testing performed by: [facility], [address] [place] [address], [place]., [id number] First COVID-19 test? No CERNER CH Comment:Testing performed by : [facility], [address] [place] [address]., [id number] Employeed in healthcare? No CERNER CH Comment:Testing performed by : [facility], [address] [place] [address]., [id number] status? No CERNER CH Comment:Testing performed by : [facility], [address] [place] [address], [id number] Group care resident? No CERNER CH Comment:Testing performed by : [facility], [address] [place]., [address] Hospitalized? No DIONICIO Comment:Testing performed by : [facility], [address] [place]., [address] Is patient in ICU? No DIONICIO Comment:Testing performed by : [facility], [address] [facility], [address] Symptomatic as defined by CDC? Yes DIONICIO Comment:Testing performed by : [facility], [address] [facility], [address] Nasopharyngeal 05/31/2021 8: 58 AM SOLUTION ANALYST 05/31/2021 6:29 PM SOLUTION ANALYST Narrative DIONICIO - 06/01/2021 5:20 AM SOLUTION ANALYST What is the reason for testing?->Symptomatic patients within 5 days of ??symptom onset (Batched) Date of Symptom Onset->05/31/21 Reji oJhnson NP LAB MICROBIOLOGY - GENERAL ORDE CHRISTINA Final Result [facility] [address] [address] [place] [address] * POC Influenza A/B, COVID-19 antigen (05/31/2021 8:53 AM SOLUTION ANALYST) Influenza A Ag, POC Negative [facility] Influenza B Ag, POC Negative [facility] COVID-19 Ag POC Presumptive Negative Presumptive Negative, Invalid [facility] 05/31/2021 8:53 AM SOLUTION ANALYST Reji Johnson NP POINT OF CARE TEST ORDERABLES F inal Result [facility] [address] [place] [address] documented in this encounter Visit Diagnoses Diagnosis Acute nasopharyngitis- Primary Acute nasopharyngitis (common cold) Close exposure to COVID-19 virus Elevated blood pressure reading without diagnosis of hypertension Acute nasopharyngitis Acute nasopharyngitis (common cold) documented in this encounter Additional Health Concerns Infection Onset Date Last Indicated Resolved Time COVID: Suspected 05/31/2021 05/31/2021 05/31/2021 8:54 AM SOLUTION ANALYST COVID: Suspected 05/31/2021 05/31/2021 06/01/2021 5:21 AM SOLUTION ANALYST documented as of this encounter Care Teams Side Stitching Machine Operator Relationship Specialty Start Date End Date Monty Umana DO PCP - General Internal Medicine 04/26/21 06/04/23 Monty Umana DO 04/26/21 documented as of this encounter
--- OUTSIDE RECORDS SUMMARY | 2024-05-17 23:20 | XMS_ITS | Encounter Summary ---
Author Organization [facility] Healthcare Address [address] [place] [address] Care Team Providers Care Gold Charmer Name Role Phone Monty Umana DO Unavailable [phone] Homero Santos MD Primary Care Provi charles Reason for Visit * Reason Onset Date Comments Additional Services Or Orders 06/20/2023 Encounter Details Date Type Department Care Team (Late st Contact Info) Description 06/20/2023 Telephone [facility] Family Medicine [address] [place] [address] Homero Santos MD [address] [place] [address] Additional Services Or Orders Social History Tobacco Use Types Packs/Day Years [...] on file Legal Sex Female 12:41 PM GROUND CREW CHIEF Gender Identity Not on file Sexual Orientation Not on file documented as of this encounter Miscellaneous Notes * Telephone Encounter - Pablo Garcia - 06/20/2023 1:42 PM CST Sent labs to [facility] and called pt to inform that her labs should be there. ND CREW CHIEF * Telephone Encounter - Jagruti Velazco - 06/20/2023 10:58 AM CST Additional Services or Orders Type of Service Requested:Labs Reason for Request (e.g. condition/symptom, date of COVID exposure if applicable): annual labs Details Regarding Additional Services (e.g. type of home health, type of equipment, type of test, etc.): labs Where will services be performed? (if outside of the practice, facility name, address, phone/fax offacility): Curbside Additional Comments: Current orders are for [facility]ner. [facility] get [facility]. Appt scheduled for 07/15 Does message need to be routed? Yes-Action Needed ND CREW CHIEF documented in this encounter Plan of Treatment Not on file documented as of this encounter Visit Diagnoses Not on filedocumented in this encounter Care Teams Gold Charmer Relationship Specialty Start Date End Date Homero Santos MD [address] [address] PCP - General Family Medicine 06/05/23 Monty Umana DO 04/26/21 documented as of this encounter
--- OUTSIDE RECORDS SUMMARY | 2024-05-17 23:20 | XMS_ITS | Encounter Summary ---
Author Organization [facility] Address [address] [place] [address] Care Team Providers Care Recruiter Specialist Name Role Phone Unavailable Primary Care Provider Unavailabl e Encounter Details Date Type Department Care Team (Late st Contact Info) Description 03/03/2010 4:22 PM CDT - 03/03/2010 5:50 PM CDT Hospital Encounter [facility] Monty Sotelo MD [address] [facility] [address] [place] [address] Monty Umana, DO [address] [facility] [address] [address] Bronchitis; Acute pharyngitis Social History Tobacco Use Types Packs/Day Years Used Date Smoking Tobacco: Never Assessed Comments Unknown Sex and Gender Information Value Date Recorded Sex Assigned at Not on file Legal Sex Female 12:41 PM SIDE PANEL PADDER Gender Identity Not on file Sexual Orientation Not on file documented as of this encounter Plan of Treatment Not on file documented as of this encounter Visit Diagnoses Diagnosis Bronchitis Bronchitis, not specified as acute or chronic Acute pharyngitis documented in this encounter
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
--- OUTSIDE RECORDS SUMMARY | 2024-05-17 23:21 | XMS_ITS | Encounter Summary ---
Author Organization [facility] Healthcare Address [address] [place] [address] Care Team Providers Care 1St Grade Teacher Name Role Phone Unavailable Primary Care Provider Unavailabl e Encounter Details Date Type Department Care Team (Late st Contact Info) Description 12/30/2006 7:43 AM CDT - 12/30/2006 9:05 AM CDT Hospital Encounter [facility] CLINJonatan Dong MD [address] [facility] [place] [address] Social History Tobacco Use Types Packs/Day Years Used Date Smoking Tobacco: Never Assessed Comments Unknown Sex and Gender Information Value Date Recorded Sex Assigned at Not on file Legal Sex Female 12:41 PM NATURAL HISTORY COLLECTIONS CURATOR Gender Identity Not on file Sexual Orientation Not on file documented as of this encounter Plan of Treatment Not on file documented as of this encounter Visit Diagnoses Not on filedocumented in this encounter
--- OUTSIDE RECORDS SUMMARY | 2024-05-17 23:21 | XMS_ITS | Encounter Summary ---
Author Organization [facility] Healthcare Address [address] [place] [address] Care Team Providers Care Shop Router Name Role Phone Unavailable Primary Care Provider Unavailabl e Encounter Details Date Type Department Care Team (Late st Contact Info) Description 06/17/2009 10:56 AM HAZARD MITIGATION OFFICER - 06/17/2009 11:56 AM HAZARD MITIGATION OFFICER Hospital Encounter [facility] Monty Sotelo MD [address] [facility] [address] [place] [address] Raúl Tim MD [address] [place] [id number] Thoracic back sprain; Accidental fall on or from other stairs or steps; Place of occurrence, home; External cause status; Tobacco use disorder Social History Tobacco Use Types Packs/Day Years Used Date Smoking Tobacco: Never Assessed Comments Unknown Sex and Gender Information Value Date Recorded Sex Assigned at Not on file Legal Sex Female 12:41 PM HAZARD MITIGATION OFFICER Gender Identity Not on file Sexual Orientation Not on file documented as of this encounter Plan of Treatment Not on file documented as of this encounter Visit Diagnoses Diagnosis Thoracic back sprain Thoracic sprain and strain Accidental fall on or from other stairs or steps Place of occurrence, home External cause status Tobacco use disorder documented in this encounter
== END 2024-05-10 15:44 | disposition home or self-care (01) ==
PROVIDERS: Emergency Provider Nurse Practitioner Family; PCP Internal Medicine
DX: R30.0 Dysuria (principal); Z87.891 Personal history of nicotine dependence; E78.5 Hyperlipidemia, unspecified
CPT/HCPCS: 81003; 87077; 87086; 87186; 99213; G0463

== ENCOUNTER 2024-10-13 14:12 | Outpatient (CLI) | payer BC, SELFPAY ==
--- OUTSIDE RECORDS SUMMARY | 2024-10-13 14:19 | XMS_ITS | Encounter Summary ---
Author Organization [facility] Address [address] [place] [address] Care Team Providers Care Stone Planer Name Role Phone Raúl Tim MD Primary Care Provider [phone]- [phone] Reason for Visit * Diagnostic Imaging (Routine) - Pending Review Specialty Diagnoses / Procedures Referred By Contac t Referred To Contact Procedures Breast Imaging Procedure Outside Reference Jodie Guzmán, ORE MINER [address] [facility] [address] [address] Phone: tel: fax: Referral ID Status Reason Start Date Expiration Date V isits Requested Visits Authorized [id number] Pending Review 07/22/2024 08/21/2025 1 1 Encounter Details Date Type Department Care Team (Late st Contact Info) Description 07/23/2016 Hospital Encounter [facility] Imaging [address] [place] [address] Social History Tobacco Use Types Packs/Day Years Used Date Smoking Tobacco: Every Day Cigarettes 0.5 30 PHQ-2 Answer Date Recorded PHQ-2 Total Score (If total score is 3 or more points, staff should administer the PHQ-9) 6 05/22/2023 Comments No Sex and Gender Information Value Date Recorded Sex Assigned at Not on file Legal Sex Female 12:41 PM OBSTETRICIAN AND GYNAECOLOGIST Gender Identity Not on file Sexual Orientation Not on file documented as of this encounter Plan of Treatment Not on file documented as of this encounter Procedures Procedure Name Priority Date/Time Associated Diagnosis Comments BREAST IMAGING MG PROCEDURE OUTSIDE REFERENCE Routine 07/23/2016 12:00 AM OBSTETRICIAN AND GYNAECOLOGIST documented in this encounter Results * Breast Imaging Procedure Outside Reference (07/23/2016 12:00 AM OBSTETRICIAN AND GYNAECOLOGIST) Impressions [facility]MO[facility] - 07/22/2024 9:10 AM OBSTETRICIAN AND GYNAECOLOGIST These images are for Reference purposes only and have not been reviewed by [facility] Radiology. There will be no report generated by a [facility] Radiologist. Narrative [facility]MO[facility] - 07/22/2024 9:10 AM OBSTETRICIAN AND GYNAECOLOGIST EXAMINATION: Images For Reference Purposes Only us Jodie Guzmán ORE MINER IMG MAMMO PROCEDURES Final R esult [facility] documented in this encounter Visit Diagnoses Not on filedocumented in this encounter Additional Health Concerns Infection Onset Date Last Indicated Resolved Time COVID: Suspected 04/26/2021 04/26/2021 04/26/2021 3:52 PM OBSTETRICIAN AND GYNAECOLOGIST COVID: Suspected 05/31/2021 05/31/2021 05/31/2021 8:54 AM OBSTETRICIAN AND GYNAECOLOGIST COVID: Suspected 05/31/2021 05/31/2021 06/01/2021 5:21 AM OBSTETRICIAN AND GYNAECOLOGIST COVID: Suspected 06/17/2024 06/17/2024 06/17/2024 6:51 PM OBSTETRICIAN AND GYNAECOLOGIST documented as of this encounter Care Teams Stone Planer Relationship Specialty Start Date End Date Raúl Tim MD PCP - General 06/22/11 01/05/17 documented as of this encounter
--- OUTSIDE RECORDS SUMMARY | 2024-10-13 14:19 | XMS_ITS | Encounter Summary ---
Author Organization [facility] Address [address] [place] [address] Care Team Providers Care Winch Operator Name Role Phone Monty Umana DO Primary Care Provider [phone]- [phone] Reason for Visit * Diagnostic Imaging (Routine) - Pending Review Specialty Diagnoses / Procedures Referred By Contac t Referred To Contact Procedures Breast Imaging Diagnostic Outside Reference Jodie Guzmán, HAND ALTERATIONS TAILOR [address] [facility] [address] [address] Phone: tel: fax: Referral ID Status Reason Start Date Expiration Date V isits Requested Visits Authorized [id number] Pending Review 07/22/2024 08/21/2025 1 1 Encounter Details Date Type Department Care Team (Late st Contact Info) Description 05/21/2017 12:05 AM REGIONAL MARKETING MANAGER Hospital Encounter [facility] Imaging [address] [place] [address] Social History Tobacco Use Types Packs/Day Years Used Date Smoking Tobacco: Every Day Cigarettes 0.5 30 PHQ-2 Answer Date Recorded PHQ-2 Total Score (If total score is 3 or more points, staff should administer the PHQ-9) 6 05/22/2023 Comments No Sex and Gender Information Value Date Recorded Sex Assigned at Not on file Legal Sex Female 12:41 PM REGIONAL MARKETING MANAGER Gender Identity Not on file Sexual Orientation Not on file documented as of this encounter Plan of Treatment Not on file documented as of this encounter Procedures Procedure Name Priority Date/Time Associated Diagnosis Comments BREAST IMAGING MG DIAGNOSTIC OUTSIDE REFERENCE Routine 05/21/2017 12:05 AM REGIONAL MARKETING MANAGER documented in this encounter Results * Breast Imaging Diagnostic Outside Reference (05/21/2017 12:05 AM REGIONAL MARKETING MANAGER) Impressions [facility]MO[facility] - 07/22/2024 9:10 AM REGIONAL MARKETING MANAGER These images are for Reference purposes only and have not been reviewed by [facility] Radiology. There will be no report generated by a [facility] Radiologist. Narrative RAD_MAMMO[facility] - 07/22/2024 9:10 AM REGIONAL MARKETING MANAGER EXAMINATION: Images For Reference Purposes Only us Jodie Guzmán HAND ALTERATIONS TAILOR IMG MAMMO PROCEDURES Final R esult [facility] documented in this encounter Visit Diagnoses Not on filedocumented in this encounter Additional Health Concerns Infection Onset Date Last Indicated Resolved Time COVID: Suspected 04/26/2021 04/26/2021 04/26/2021 3:52 PM REGIONAL MARKETING MANAGER COVID: Suspected 05/31/2021 05/31/2021 05/31/2021 8:54 AM REGIONAL MARKETING MANAGER COVID: Suspected 05/31/2021 05/31/2021 06/01/2021 5:21 AM REGIONAL MARKETING MANAGER COVID: Suspected 06/17/2024 06/17/2024 06/17/2024 6:51 PM REGIONAL MARKETING MANAGER documented as of this encounter Care Teams Winch Operator Relationship Specialty Start Date End Date Monty Umana DO PCP - General 01/06/17 04/25/21 documented as of this encounter
--- OUTSIDE RECORDS SUMMARY | 2024-10-13 14:19 | XMS_ITS | Referral Summary ---
Author Organization [facility] [address] Address [address] [place] [address] Care Team Providers Care Manufacturing Design Engineer Name Role Phone Monty Umana DO Unavailable [phone] Monty Umana DO Primary Care Provider [phone] Encounters Date Type Department Care Team Description 07/23/2024 1:50 PM BIG MACHINE CONSULTANT - 07/23/2024 11:59 PM [facility] Hospital Encounter Replaced by [facility] [address] [place] [address] [address] [place] [address] Mass of breast, unspecified laterality; Solitary cyst of right breast; Solitary cyst of left breast Discharge Disposition: Discharge to home or self care 07/23/2024 1:00 PM BIG MACHINE CONSULTANT - 07/23/2024 11:59 PM [facility] Hospital Encounter [facility] - Replaced by [facility] [address] [place] [address] [address] [place] [address] Mass of breast, unspecified laterality Discharge Disposition: Discharge to home or self care from Last 3 Months Allergies Active Allergy Reactions Criticality Noted Date Comments Dye Hives High 03/30/2015 Iodinated Contrast Media Iodinated Contrast Media Swelling Medium 04/26/2021 Nickel Unknown 07/23/2016 Medications prazosin (MINIPRESS) 1 mg capsule TAKE 1 CAPSULE EVERY DAY BY ORAL ROUTE AT BEDTIME FOR 30 DAYS, FOR INSOMNIA/NIGHTM JUAN MANUEL. Active sertraline (ZOLOFT) 100 mg tablet Take 1 tablet (100 mg total) by mouth daily Active clonazePAM (KlonoPIN) 0.5 mg tablet Take 1 tablet (0.5 mg total) by mouth 2 (two) times a day Active chlordiazePOXID E (LIBRIUM) 10 mg capsuleIndicati ons:Alcohol Withdrawal Syndrome Take 1 capsule (10 mg total) by mouth 3 (three) times a day as needed for withdrawal symptoms 42 capsule Active Active Problems No known active problems Immunizations Immunization Administration Dates Next Due Influenza, Unspecified 05/22/2023(Deferred: [...] on file Legal Sex Female 12:41 PM BIG MACHINE CONSULTANT Gender Identity Not on file Sexual Orientation Not on file Last Filed Vital Signs Vital Sign Reading Time Taken Comments Blood Pressure 134/86 06/17/2024 6:20 PM BIG MACHINE CONSULTANT Pulse 77 06/17/2024 6:20 PM BIG MACHINE CONSULTANT Temperature 36.7 C (98 F) 06/17/2024 6:20 PM BIG MACHINE CONSULTANT Respiratory Rate 16 06/17/2024 6:20 PM BIG MACHINE CONSULTANT Oxygen Saturation 98% 06/17/2024 6:20 PM BIG MACHINE CONSULTANT Inhaled Oxygen Concentration - - Weight 68.5 kg (151 lb) 06/17/2024 6:20 PM BIG MACHINE CONSULTANT Height 167.6 cm (5' 6) 06/17/2024 6:20 PM BIG MACHINE CONSULTANT Body Mass Index 24.37 06/17/2024 6:20 PM BIG MACHINE CONSULTANT Plan of Treatment Not on file Procedures Procedure Name Priority Date/Time Associated Diagnosis Comments US BREAST RIGHT LIMITED Schedule Routine, Read Routine (OP Routine) 07/23/2024 2:18 PM BIG MACHINE CONSULTANT Mass of breast, unspecified laterality Solitary cyst of right breast Solitary cyst of left breast DIAGNOSTIC MAMMOGRAM BILATERAL W BENJAMIN Schedule Routine, Read Routine (OP Routine) 07/23/2024 1:40 PM BIG MACHINE CONSULTANT Mass of breast, unspecified laterality HM COLONOSCOPY Routine 04/02/2016 from Last 3 Months or Most Recently Relevant to Health Maintenance Results * US Breast Right Limited (07/23/2024 2:18 PM BIG MACHINE CONSULTANT) Anatomical Region Laterality Modality Breast Right Ultrasound 07/23/2024 2:50 PM BIG MACHINE CONSULTANT Impressions 07/23/2024 2:50 PM BIG MACHINE CONSULTANT No mammographic or sonographic evidence of malignancy. The tiny palpable area of concern is a normal duct. OVERALL FINAL ASSESSMENT: BI-RADS Category 1: Negative. RECOMMENDATION: Annual screening mammography is recommended. Electronically signed by: Rena Blackman M.D. Narrative 07/23/2024 2:50 PM BIG MACHINE CONSULTANT EXAMINATION: BILATERAL DIGITAL DIAGNOSTIC MAMMOGRAM INCLUDING CAD AND BILATERAL DIGITAL BREAST TOMOSYNTHESIS; RIGHT BREAST SONOGRAM HISTORY: 54-year-old woman is due for annual mammography but notes a palpable BB sized area subareolar inner right breast. She has a history of 2 benign biopsies in the central right breast marked with a ribbon clips. COMPARISON: Prior exams from 2630-2179 TECHNIQUE: Full field digital mammographic views of BOTH breasts were performed, including computer aided detection (CAD) and BILATERAL digital breast tomosynthesis (DBT). Directed ultrasound evaluation of the RIGHT breast was performed by a trained regulatory assistant and by Dr. Rena Blackman. BREAST PARENCHYMAL COMPOSITION: There are scattered areas of fibroglandular density. MAMMOGRAM FINDINGS: There are no new findings in either breast. SONOGRAM FINDINGS: Clinical exam reveals a barely palpable BB sized area of concern in the superficial subareolar region of the inner right breast. Simultaneous scanning with palpation shows that there are normal ducts and cysts in the area of clinical concern. Procedure Note Rena Blackman MD - 07/23/2024 EXAMINATION: BILATERAL DIGITAL DIAGNOSTIC MAMMOGRAM INCLUDING CAD AND BILATERAL DIGITAL BREAST TOMOSYNTHESIS; RIGHT BREAST SONOGRAM HISTORY: 54-year-old woman is due for annual mammography but notes a palpable BB sized area subareolar inner right breast. She has a history of 2 benign biopsies in the central right breast marked with a ribbon clips. COMPARISON: Prior exams from 1020-2313 TECHNIQUE: Full field digital mammographic views of BOTH breasts were performed, including computer aided detection (CAD) and BILATERAL digital breast tomosynthesis (DBT). Directed ultrasound evaluation of the RIGHT breast was performed by a trained regulatory assistant and by Dr. Rena Blackman. BREAST PARENCHYMAL COMPOSITION: There are scattered areas of fibroglandular density. MAMMOGRAM FINDINGS: There are no new findings in either breast. SONOGRAM FINDINGS: Clinical exam reveals a barely palpable BB sized area of concern in the superficial subareolar region of the inner right breast. Simultaneous scanning with palpation shows that there are normal ducts and cysts in the area of clinical concern. IMPRESSION: No mammographic or sonographic evidence of malignancy. The tiny palpable area of concern is a normal duct. OVERALL FINAL ASSESSMENT: BI-RADS Category 1: Negative. RECOMMENDATION: Annual screening mammography is recommended. Electronically signed by: Rena Blackman M.D. Jodie Guzmán NP IMG MAMMO PROCEDURES Final R esult * Diagnostic Mammogram Bilateral W Benjamin (07/23/2024 1:40 PM BIG MACHINE CONSULTANT) Anatomical Region Laterality Modality Breast Bilateral Mammography 07/23/2024 2:50 PM BIG MACHINE CONSULTANT Impressions 07/23/2024 2:50 PM BIG MACHINE CONSULTANT No mammographic or sonographic evidence of malignancy. The tiny palpable area of concern is a normal duct. OVERALL FINAL ASSESSMENT: BI-RADS Category 1: Negative. RECOMMENDATION: Annual screening mammography is recommended. Electronically signed by: Rena Blackman M.D. Narrative 07/23/2024 2:50 PM BIG MACHINE CONSULTANT EXAMINATION: BILATERAL DIGITAL DIAGNOSTIC MAMMOGRAM INCLUDING CAD AND BILATERAL DIGITAL BREAST TOMOSYNTHESIS; RIGHT BREAST SONOGRAM HISTORY: 54-year-old woman is due for annual mammography but notes a palpable BB sized area subareolar inner right breast. She has a history of 2 benign biopsies in the central right breast marked with a ribbon clips. COMPARISON: Prior exams from [id number] TECHNIQUE: Full field digital mammographic views of BOTH breasts were performed, including computer aided detection (CAD) and BILATERAL digital breast tomosynthesis (DBT). Directed ultrasound evaluation of the RIGHT breast was performed by a trained regulatory assistant and by Dr. Rena Blackman. BREAST PARENCHYMAL COMPOSITION: There are scattered areas of fibroglandular density. MAMMOGRAM FINDINGS: There are no new findings in either breast. SONOGRAM FINDINGS: Clinical exam reveals a barely palpable BB sized area of concern in the superficial subareolar region of the inner right breast. Simultaneous scanning with palpation shows that there are normal ducts and cysts in the area of clinical concern. Procedure Note Rena Blackman MD - 07/23/2024 EXAMINATION: BILATERAL DIGITAL DIAGNOSTIC MAMMOGRAM INCLUDING CAD AND BILATERAL DIGITAL BREAST TOMOSYNTHESIS; RIGHT BREAST SONOGRAM HISTORY: 54-year-old woman is due for annual mammography but notes a palpable BB sized area subareolar inner right breast. She has a history of 2 benign biopsies in the central right breast marked with a ribbon clips. COMPARISON: Prior exams from 2514-6100 TECHNIQUE: Full field digital mammographic views of BOTH breasts were performed, including computer aided detection (CAD) and BILATERAL digital breast tomosynthesis (DBT). Directed ultrasound evaluation of the RIGHT breast was performed by a trained regulatory assistant and by Dr. Rena Blackman. BREAST PARENCHYMAL COMPOSITION: There are scattered areas of fibroglandular density. MAMMOGRAM FINDINGS: There are no new findings in either breast. SONOGRAM FINDINGS: Clinical exam reveals a barely palpable BB sized area of concern in the superficial subareolar region of the inner right breast. Simultaneous scanning with palpation shows that there are normal ducts and cysts in the area of clinical concern. IMPRESSION: No mammographic or sonographic evidence of malignancy. The tiny palpable area of concern is a normal duct. OVERALL FINAL ASSESSMENT: BI-RADS Category 1: Negative. RECOMMENDATION: Annual screening mammography is recommended. Electronically signed by: Rena Blackman M.D. Jodie Guzmán NP IMG MAMMO PROCEDURES Final R esult * HM COLONOSCOPY (04/02/2016) Historical Provider HEALTH MAINTENANCE Final Result from Last 3 Months or Most Recently Relevant to Health Maintenance Insurance [employer] [facility] Care Teams Manufacturing Design Engineer Relationship Specialty Start Date End Date Monty Umana DO [facility] - General Internal Medicine 07/23/24 Monty Umana DO 04/26/21
--- OUTSIDE RECORDS SUMMARY | 2024-10-13 14:19 | XMS_ITS | Clinical Summary ---
Author Organization [facility] [address] Address [facility] [place] [address] Care Team Providers Care Auto Electrician Name Role Phone Monty Umana DO Unavailable [phone] Monty Umana DO Primary Care Provider [phone] Allergies Active Allergy Reactions Criticality Noted Date Comments Dye Hives High 03/30/2015 Iodinated Contrast Media Iodinated Contrast Media Swelling Medium 04/26/2021 Nickel Unknown 07/23/2016 Medications prazosin (MINIPRESS) 1 mg capsule TAKE 1 CAPSULE EVERY DAY BY ORAL ROUTE AT BEDTIME FOR 30 DAYS, FOR INSOMNIA/NIGHTM JUAN MANUEL. 4 Active sertraline (ZOLOFT) 100 mg tablet Take [...] Active Active Problems No known active problems Encounters Date Type Department Care Team Description 07/23/2024 1:50 PM WAITER/WAITRESS CAPTAIN - 07/23/2024 11:59 PM [facility] Hospital Encounter [address] [place] [address] [address] DANNIE Mantilla [address] Mass of breast, unspecified laterality; Solitary cyst of right breast; Solitary cyst of left breast Discharge Disposition: Discharge to home or self care 07/23/2024 1:00 PM WAITER/WAITRESS CAPTAIN - 07/23/2024 11:59 PM WAITER/WAITRESS CAPTAIN Hospital Encounter [facility] - [address] [place] [address] Mass of breast, unspecified laterality Discharge Disposition: Discharge to home or self care from Last 3 Months Immunizations Immunization Administration Dates Next Due Influenza, Unspecified 05/22/2023(Deferred: Angela ent Refused) Surgical History Surgery Date Site/Laterality Comments MECKEL DIVERTICULUM EXCISION 11/2012 HYSTERECTOMY 04/2016 BREAST BIOPSY 07/23/2016 Right Medical History Medical History Date Comments Depression [...] on file Legal Sex Female 12:41 PM WAITER/WAITRESS CAPTAIN Gender Identity Not on file Sexual Orientation Not on file Obstetrics History Last Filed Vital Signs Vital Sign Reading Time Taken Comments Blood Pressure 134/86 06/17/2024 6:20 PM WAITER/WAITRESS CAPTAIN Pulse 77 06/17/2024 6:20 PM WAITER/WAITRESS CAPTAIN Temperature 36.7 C (98 F) 06/17/2024 6:20 PM WAITER/WAITRESS CAPTAIN Respiratory Rate 16 06/17/2024 6:20 PM WAITER/WAITRESS CAPTAIN Oxygen Saturation 98% 06/17/2024 6:20 PM WAITER/WAITRESS CAPTAIN Inhaled Oxygen Concentration - - Weight 68.5 kg (151 lb) 06/17/2024 6:20 PM WAITER/WAITRESS CAPTAIN Height 167.6 cm (5' 6) 06/17/2024 6:20 PM WAITER/WAITRESS CAPTAIN Body Mass Index 24.37 06/17/2024 6:20 PM WAITER/WAITRESS CAPTAIN Plan of Treatment Health Maintenance Due Date Last Done Comments Hepatitis C Screening 1972 Hepatitis B Screening 01/18/1990 Regular Well Visit/Exam 18-64 01/18/1990 Pneumococcal vaccine <65 (1 of 2 - PCV) 01/18/1991 DTaP/Tdap/Td Vaccine (2 - Td or Tdap) 10/02/2020 Zoster Vaccine (1 of 2) 01/18/2022 Depression Screening 05/22/2024 05/22/2023, 05/22/19 24 Influenza Vaccine (Season Ended) 2025 Breast Cancer Screening-Mammogram 07/23/2025 025 Colon Cancer Screening-Colonoscopy 04/02/20262015 Procedures Procedure Name Priority Date/Time Associated Diagnosis Comments US BREAST RIGHT LIMITED Schedule Routine, Read Routine (OP Routine) 07/23/2024 2:18 PM WAITER/WAITRESS CAPTAIN Mass of breast, unspecified laterality Solitary cyst of right breast Solitary cyst of left breast DIAGNOSTIC MAMMOGRAM BILATERAL W BENJAMIN Schedule Routine, Read Routine (OP Routine) 07/23/2024 1:40 PM WAITER/WAITRESS CAPTAIN Mass of breast, unspecified laterality HM COLONOSCOPY Routine 04/02/2016 from Last 3 Months or Most Recently Relevant to Health Maintenance Results * US Breast Right Limited (07/23/2024 2:18 PM WAITER/WAITRESS CAPTAIN) Anatomical Region Laterality Modality Breast Right Ultrasound 07/23/2024 2:50 PM WAITER/WAITRESS CAPTAIN Impressions 07/23/2024 2:50 PM WAITER/WAITRESS CAPTAIN No mammographic or sonographic evidence of malignancy. The tiny palpable area of concern is a normal duct. OVERALL FINAL ASSESSMENT: BI-RADS Category 1: Negative. RECOMMENDATION: Annual screening mammography is recommended. Electronically signed by: Rena Blackman M.D. Narrative 07/23/2024 2:50 PM WAITER/WAITRESS CAPTAIN EXAMINATION: BILATERAL DIGITAL DIAGNOSTIC MAMMOGRAM INCLUDING CAD AND BILATERAL DIGITAL BREAST TOMOSYNTHESIS; RIGHT BREAST SONOGRAM HISTORY: 54-year-old woman is due for annual mammography but notes a palpable BB sized area subareolar inner right breast. She has a history of 2 benign biopsies in the central right breast marked with a ribbon clips. COMPARISON: Prior exams from [id number] TECHNIQUE: Full field digital mammographic views of BOTH breasts were performed, including computer aided detection (CAD) and BILATERAL digital breast tomosynthesis (DBT). Directed ultrasound evaluation of the RIGHT breast was performed by a trained slip cover cutter and by Dr. Rena Blackman. BREAST PARENCHYMAL [...] a ribbon clips. COMPARISON: Prior exams from [id number] TECHNIQUE: Full field digital mammographic views of BOTH breasts were performed, including computer aided detection (CAD) and BILATERAL digital breast tomosynthesis (DBT). Directed ultrasound evaluation of the RIGHT breast was performed by a trained slip cover cutter and by Dr. Rena Blackman. BREAST PARENCHYMAL [...] Mammogram Bilateral W Benjamin (07/23/2024 1:40 PM WAITER/WAITRESS CAPTAIN) Anatomical Region Laterality Modality Breast Bilateral Mammography 07/23/2024 2:50 PM WAITER/WAITRESS CAPTAIN Impressions 07/23/2024 2:50 PM WAITER/WAITRESS CAPTAIN No mammographic or sonographic evidence of malignancy. The tiny palpable area of concern is a normal duct. OVERALL FINAL ASSESSMENT: BI-RADS Category 1: Negative. RECOMMENDATION: Annual screening mammography is recommended. Electronically signed by: Rena Blackman M.D. Narrative 07/23/2024 2:50 PM WAITER/WAITRESS CAPTAIN EXAMINATION: BILATERAL DIGITAL DIAGNOSTIC MAMMOGRAM INCLUDING CAD AND BILATERAL DIGITAL BREAST TOMOSYNTHESIS; RIGHT BREAST SONOGRAM HISTORY: 54-year-old woman is due for annual mammography but notes a palpable BB sized area subareolar inner right breast. She has a history of 2 benign biopsies in the central right breast marked with a ribbon clips. COMPARISON: Prior exams from [id number] TECHNIQUE: Full field digital mammographic views of BOTH breasts were performed, including computer aided detection (CAD) and BILATERAL digital breast tomosynthesis (DBT). Directed ultrasound evaluation of the RIGHT breast was performed by a trained slip cover cutter and by Dr. Rena Blackman. BREAST PARENCHYMAL [...] a ribbon clips. COMPARISON: Prior exams from [id number] TECHNIQUE: Full field digital mammographic views of BOTH breasts were performed, including computer aided detection (CAD) and BILATERAL digital breast tomosynthesis (DBT). Directed ultrasound evaluation of the RIGHT breast was performed by a trained slip cover cutter and by Dr. Rena Blackman. BREAST PARENCHYMAL [...] Most Recently Relevant to Health Maintenance Insurance [facility] Care Teams Auto Electrician Relationship Specialty Start Date End Date Monty Umana DO PCP - General Internal Medicine 07/23/24 Monty Umana DO 04/26/21
--- OUTSIDE RECORDS SUMMARY | 2024-10-13 14:19 | XMS_ITS | Encounter Summary ---
Author Organization [facility] Address [address] [place] [address] Care Team Providers Care Panel Builder Name Role Phone Monty Umana DO Primary Care Provider [phone]- [phone] Reason for Visit * Diagnostic Imaging (Routine) - Pending Review Specialty Diagnoses / Procedures Referred By Contac t Referred To Contact Procedures Breast Imaging US Outside Reference Jodie Guzmán, TOOLROOM MACHINIST [address] [facility] [address] [address] Phone: tel: fax: Referral ID Status Reason Start Date Expiration Date V isits Requested Visits Authorized [id number] Pending Review 07/22/2024 08/21/2025 1 1 Encounter Details Date Type Department Care Team (Late st Contact Info) Description 05/21/2017 Hospital Encounter [facility] Imaging [address] [place] [address] Social History Tobacco Use Types Packs/Day Years Used Date Smoking Tobacco: Every Day Cigarettes 0.5 30 PHQ-2 Answer Date Recorded PHQ-2 Total Score (If total score is 3 or more points, staff should administer the PHQ-9) 6 05/22/2023 Comments No Sex and Gender Information Value Date Recorded Sex Assigned at Not on file Legal Sex Female 12:41 PM HEAVY DUTY MECHANIC FARM EQUIPMENT Gender Identity Not on file Sexual Orientation Not on file documented as of this encounter Plan of Treatment Not on file documented as of this encounter Procedures Procedure Name Priority Date/Time Associated Diagnosis Comments BREAST IMAGING US OUTSIDE REFERENCE Routine 05/21/2017 12:00 AM HEAVY DUTY MECHANIC FARM EQUIPMENT documented in this encounter Results * Breast Imaging US Outside Reference (05/21/2017 12:00 AM HEAVY DUTY MECHANIC FARM EQUIPMENT) Impressions [facility]_MAMMO[facility] - 07/22/2024 9:10 AM HEAVY DUTY MECHANIC FARM EQUIPMENT These images are for Reference purposes only and have not been reviewed by [facility] Radiology. There will be no report generated by a [facility] Radiologist. Narrative RAD_MAMMO[facility] - 07/22/2024 9:10 AM HEAVY DUTY MECHANIC FARM EQUIPMENT EXAMINATION: Images For Reference Purposes Only us Jodie Guzmán TOOLROOM MACHINIST IMG MAMMO PROCEDURES Final R esult [facility]_MAMMO[facility] documented in this encounter Visit Diagnoses Not on filedocumented in this encounter Additional Health Concerns Infection Onset Date Last Indicated Resolved Time COVID: Suspected 04/26/2021 04/26/2021 04/26/2021 3:52 PM HEAVY DUTY MECHANIC FARM EQUIPMENT COVID: Suspected 05/31/2021 05/31/2021 05/31/2021 8:54 AM HEAVY DUTY MECHANIC FARM EQUIPMENT COVID: Suspected 05/31/2021 05/31/2021 06/01/2021 5:21 AM HEAVY DUTY MECHANIC FARM EQUIPMENT COVID: Suspected 06/17/2024 06/17/2024 06/17/2024 6:51 PM HEAVY DUTY MECHANIC FARM EQUIPMENT documented as of this encounter Care Teams Panel Builder Relationship Specialty Start Date End Date Monty Umana DO PCP - General 01/06/17 04/25/21 documented as of this encounter
--- OUTSIDE RECORDS SUMMARY | 2024-10-13 14:19 | XMS_ITS | Encounter Summary ---
Author Organization [facility] Address [address] [place] [address] Care Team Providers Care Asbestos Abatement Worker Name Role Phone Monty Umana DO Primary Care Provider +1- [phone] Reason for Visit * Diagnostic Imaging (Routine) - Pending Review Specialty Diagnoses / Procedures Referred By Contac t Referred To Contact Procedures Breast Imaging US Outside Reference Jodie Guzmán, TOOL DRESSER [address] [facility] [address] [address] Phone: tel: fax: Referral ID Status Reason Start Date Expiration Date V isits Requested Visits Authorized [id number] Pending Review 07/22/2024 08/21/2025 1 1 Encounter Details Date Type Department Care Team (Late st Contact Info) Description 09/03/2019 Hospital Encounter [facility] Imaging [address] [place] [address] Social History Tobacco Use Types Packs/Day Years Used Date Smoking Tobacco: Every Day Cigarettes 0.5 30 PHQ-2 Answer Date Recorded PHQ-2 Total Score (If total score is 3 or more points, staff should administer the PHQ-9) 6 05/22/2023 Comments No Sex and Gender Information Value Date Recorded Sex Assigned at Not on file Legal Sex Female 12:41 PM SLUMBER ROOM ATTENDANT Gender Identity Not on file Sexual Orientation Not on file documented as of this encounter Plan of Treatment Not on file documented as of this encounter Procedures Procedure Name Priority Date/Time Associated Diagnosis Comments BREAST IMAGING US OUTSIDE REFERENCE Routine 09/03/2019 12:00 AM CDT documented in this encounter Results * Breast Imaging US Outside Reference (09/03/2019 12:00 AM CDT) Impressions RAD_MAMMO[facility] - 07/22/2024 9:10 AM SLUMBER ROOM ATTENDANT These images are for Reference purposes only and have not been reviewed by [facility] Radiology. There will be no report generated by a [facility] Radiologist. Narrative RAD_MAMMO[facility] - 07/22/2024 9:10 AM SLUMBER ROOM ATTENDANT EXAMINATION: Images For Reference Purposes Only us Jodie Guzmán TOOL DRESSER IMG MAMMO PROCEDURES Final R esult [facility]_MAMMO[facility] documented in this encounter Visit Diagnoses Not on filedocumented in this encounter Additional Health Concerns Infection Onset Date Last Indicated Resolved Time COVID: Suspected 04/26/2021 04/26/2021 04/26/2021 3:52 PM SLUMBER ROOM ATTENDANT COVID: Suspected 05/31/2021 05/31/2021 05/31/2021 8:54 AM SLUMBER ROOM ATTENDANT COVID: Suspected 05/31/2021 05/31/2021 06/01/2021 5:21 AM SLUMBER ROOM ATTENDANT COVID: Suspected 06/17/2024 06/17/2024 06/17/2024 6:51 PM SLUMBER ROOM ATTENDANT documented as of this encounter Care Teams Asbestos Abatement Worker Relationship Specialty Start Date End Date Monty Umana DO PCP - General 01/06/17 04/25/21 documented as of this encounter
--- OUTSIDE RECORDS SUMMARY | 2024-10-13 14:19 | XMS_ITS | Encounter Summary ---
Author Organization [facility] Address [address] [place] [address] Care Team Providers Care Journeyman Tool And Die Maker Name Role Phone Monty Umana DO Primary Care Provider +1- [phone] Reason for Visit * Diagnostic Imaging (Routine) - Pending Review Specialty Diagnoses / Procedures Referred By Contac t Referred To Contact Procedures Breast Imaging US Outside Reference Jodie Guzmán, BATH STEWARD [address] [facility] [address] [address] Phone: tel: fax: Referral ID Status Reason Start Date Expiration Date V isits Requested Visits Authorized [id number] Pending Review 07/22/2024 08/21/2025 1 1 Encounter Details Date Type Department Care Team (Late st Contact Info) Description 08/01/2018 Hospital Encounter [facility] Imaging [address] [place] [address] Social History Tobacco Use Types Packs/Day Years Used Date Smoking Tobacco: Every Day Cigarettes 0.5 30 PHQ-2 Answer Date Recorded PHQ-2 Total Score (If total score is 3 or more points, staff should administer the PHQ-9) 6 05/22/2023 Comments No Sex and Gender Information Value Date Recorded Sex Assigned at Not on file Legal Sex Female 12:41 PM WAISTBAND SETTER LOCKSTITCH Gender Identity Not on file Sexual Orientation Not on file documented as of this encounter Plan of Treatment Not on file documented as of this encounter Procedures Procedure Name Priority Date/Time Associated Diagnosis Comments BREAST IMAGING US OUTSIDE REFERENCE Routine 08/01/2018 12:00 AM CDT documented in this encounter Results * Breast Imaging US Outside Reference (08/01/2018 12:00 AM CDT) Impressions [facility]_MAMMO[facility] - 07/22/2024 9:10 AM WAISTBAND SETTER LOCKSTITCH These images are for Reference purposes only and have not been reviewed by [facility] Radiology. There will be no report generated by a [facility] Radiologist. Narrative RAD_MAMMO[facility] - 07/22/2024 9:10 AM WAISTBAND SETTER LOCKSTITCH EXAMINATION: Images For Reference Purposes Only us Jodie Guzmán BATH STEWARD IMG MAMMO PROCEDURES Final R esult [facility]_MAMMO[facility] documented in this encounter Visit Diagnoses Not on filedocumented in this encounter Additional Health Concerns Infection Onset Date Last Indicated Resolved Time COVID: Suspected 04/26/2021 04/26/2021 04/26/2021 3:52 PM WAISTBAND SETTER LOCKSTITCH COVID: Suspected 05/31/2021 05/31/2021 05/31/2021 8:54 AM WAISTBAND SETTER LOCKSTITCH COVID: Suspected 05/31/2021 05/31/2021 06/01/2021 5:21 AM WAISTBAND SETTER LOCKSTITCH COVID: Suspected 06/17/2024 06/17/2024 06/17/2024 6:51 PM WAISTBAND SETTER LOCKSTITCH documented as of this encounter Care Teams Journeyman Tool And Die Maker Relationship Specialty Start Date End Date Monty Umana DO PCP - General 01/06/17 04/25/21 documented as of this encounter
--- OUTSIDE RECORDS SUMMARY | 2024-10-13 14:19 | XMS_ITS | Encounter Summary ---
Author Organization [facility] Address [address] [place] [address] Care Team Providers Care Director Of Cardiology Service Line Name Role Phone Monty Umana DO Primary Care Provider +1- [phone] Reason for Visit * Diagnostic Imaging (Routine) - Pending Review Specialty Diagnoses / Procedures Referred By Contac t Referred To Contact Procedures Breast Imaging Diagnostic Outside Reference Jodie Guzmán, DEPUTY SHERIFF K9 HANDLER [address] [facility] [address] [address] Phone: tel: fax: Referral ID Status Reason Start Date Expiration Date V isits Requested Visits Authorized [id number] Pending Review 07/22/2024 08/21/2025 1 1 Encounter Details Date Type Department Care Team (Late st Contact Info) Description 08/01/2018 12:05 AM CDT Hospital Encounter [facility] Imaging [address] [place] [address] Social History Tobacco Use Types Packs/Day Years Used Date Smoking Tobacco: Every Day Cigarettes 0.5 30 PHQ-2 Answer Date Recorded PHQ-2 Total Score (If total score is 3 or more points, staff should administer the PHQ-9) 6 05/22/2023 Comments No Sex and Gender Information Value Date Recorded Sex Assigned at Not on file Legal Sex Female 12:41 PM ALUMINUM POURER Gender Identity Not on file Sexual Orientation Not on file documented as of this encounter Plan of Treatment Not on file documented as of this encounter Procedures Procedure Name Priority Date/Time Associated Diagnosis Comments BREAST IMAGING MG DIAGNOSTIC OUTSIDE REFERENCE Routine 08/01/2018 12:05 AM CDT documented in this encounter Results * Breast Imaging Diagnostic Outside Reference (08/01/2018 12:05 AM CDT) Impressions RAD_MAMMO[facility] - 07/22/2024 9:10 AM ALUMINUM POURER These images are for Reference purposes only and have not been reviewed by [facility] Radiology. There will be no report generated by a [facility] Radiologist. Narrative RAD_MAMMO_[facility] - 07/22/2024 9:10 AM ALUMINUM POURER EXAMINATION: Images For Reference Purposes Only us Jodie Guzmán DEPUTY SHERIFF K9 HANDLER IMG MAMMO PROCEDURES Final R esult [facility]_MAMMO[facility] documented in this encounter Visit Diagnoses Not on filedocumented in this encounter Additional Health Concerns Infection Onset Date Last Indicated Resolved Time COVID: Suspected 04/26/2021 04/26/2021 04/26/2021 3:52 PM ALUMINUM POURER COVID: Suspected 05/31/2021 05/31/2021 05/31/2021 8:54 AM ALUMINUM POURER COVID: Suspected 05/31/2021 05/31/2021 06/01/2021 5:21 AM ALUMINUM POURER COVID: Suspected 06/17/2024 06/17/2024 06/17/2024 6:51 PM ALUMINUM POURER documented as of this encounter Care Teams Director Of Cardiology Service Line Relationship Specialty Start Date End Date Monty Umana DO PCP - General 01/06/17 04/25/21 documented as of this encounter
--- OUTSIDE RECORDS SUMMARY | 2024-10-13 14:19 | XMS_ITS | Encounter Summary ---
Author Organization [facility] Address [address] [place] [address] Care Team Providers Care Ambulatory Service Representative Name Role Phone Monty Umana DO Primary Care Provider +1- [phone] Reason for Visit * Diagnostic Imaging (Routine) - Pending Review Specialty Diagnoses / Procedures Referred By Contac t Referred To Contact Procedures Breast Imaging Diagnostic Outside Reference Jodie Guzmán, SAW CLEANER [address] [facility] [address] [address] Phone: tel: fax: Referral ID Status Reason Start Date Expiration Date V isits Requested Visits Authorized [id number] Pending Review 07/22/2024 08/21/2025 1 1 Encounter Details Date Type Department Care Team (Late st Contact Info) Description 09/03/2019 12:05 AM CDT Hospital Encounter [facility] Imaging [address] [facility] [place] [address] Social History Tobacco Use Types Packs/Day Years Used Date Smoking Tobacco: Every Day Cigarettes 0.5 30 PHQ-2 Answer Date Recorded PHQ-2 Total Score (If total score is 3 or more points, staff should administer the PHQ-9) 6 05/22/2023 Comments No Sex and Gender Information Value Date Recorded Sex Assigned at Not on file Legal Sex Female 12:41 PM SOLE TRIMMER Gender Identity Not on file Sexual Orientation Not on file documented as of this encounter Plan of Treatment Not on file documented as of this encounter Procedures Procedure Name Priority Date/Time Associated Diagnosis Comments BREAST IMAGING MG DIAGNOSTIC OUTSIDE REFERENCE Routine 09/03/2019 12:05 AM CDT documented in this encounter Results * Breast Imaging Diagnostic Outside Reference (09/03/2019 12:05 AM CDT) Impressions RAD_MAMMO[facility] - 07/22/2024 9:10 AM SOLE TRIMMER These images are for Reference purposes only and have not been reviewed by [facility] Radiology. There will be no report generated by a [facility] Radiologist. Narrative RAD_MAMMO_[facility] - 07/22/2024 9:10 AM SOLE TRIMMER EXAMINATION: Images For Reference Purposes Only us Jodie Guzmán SAW CLEANER IMG MAMMO PROCEDURES Final R esult RAD_MAMMO[facility] documented in this encounter Visit Diagnoses Not on filedocumented in this encounter Additional Health Concerns Infection Onset Date Last Indicated Resolved Time COVID: Suspected 04/26/2021 04/26/2021 04/26/2021 3:52 PM SOLE TRIMMER COVID: Suspected 05/31/2021 05/31/2021 05/31/2021 8:54 AM SOLE TRIMMER COVID: Suspected 05/31/2021 05/31/2021 06/01/2021 5:21 AM SOLE TRIMMER COVID: Suspected 06/17/2024 06/17/2024 06/17/2024 6:51 PM SOLE TRIMMER documented as of this encounter Care Teams Ambulatory Service Representative Relationship Specialty Start Date End Date Monty Umana DO PCP - General 01/06/17 04/25/21 documented as of this encounter
--- NOTE | 2024-10-23 12:39 | WPDHOLTEREM ---
Holter/Event Monitor Holter/Event Monitor Date of procedure: 10/13/24 Holter/Event Procedure: 3-7 Day Holter Monitor Indications: Palpitations Conclusion: 1. 3 days holter monitor on 10/13/24. 2. Underlying rhythm is sinus rhythm. HR range 58-125 bpm; average HR 77 bpm. 3. There are rare premature supraventricular complexes and rare supraventricular couplets. No supraventricular tachycardia. 4. There are rare premature ventricular complexes and longest ventricular trigeminy is 6 seconds. No ventricular tachycardia. 5. No significant pauses greater than 3 seconds. 6. Patient reports 2 episodes of symptoms of irregular beats, lightheadedness, heart racing which demonstrate sinu rhythm, HR range 70-84 bpm with 1 episode with PAC.
== END 2024-10-13 14:13 | disposition home or self-care (01) ==
LOC: ANHCARD 14:15
PROVIDERS: PCP Internal Medicine; Visit Provider Nurse Practitioner
DX: R00.2 Palpitations (principal)
CPT/HCPCS: 93242